=== PATIENT | female | born 1985 | race Caucasian/White ===

== ENCOUNTER 2022-11-08 09:00 | Outpatient (REF) | payer OTHER, SELFPAY ==
[2022-11-08 11:14] LABS: MANUAL DIFF FLAG NO
[2022-11-08 11:22] LABS: Basophils Absolute Auto 0.1 X10*3/uL (0.0-0.2); Basophils Percent Auto 0.8 % (0-2); Eosinophils Absolute Auto 0.1 X10*3/uL (0.0-0.4); Eosinophils Percent Auto 1.4 % (0-4); Hematocrit 40.4 % (37.0-47.0); Hemoglobin 13.7 g/dl (12.0-16.0); Imm Gran Abs Auto 0.05 X10*3/uL (0.00-0.03); Imm Gran Pct Auto 0.5 % (0.0-0.4); Lymphocytes Absolute Auto 2.3 X10*3/uL (1.2-4.9); Lymphocytes Percent Auto 22.3 % (20-40); Mean Corpuscular HGB Conc 33.9 g/dl (31.0-35.0); Mean Corpuscular Hemoglobin 30.2 pg (27.0-33.0); Mean Platelet Volume 11.6 fL (9.4-12.3); Monocytes Absolute Auto 0.7 X10*3/uL (0.1-1.2); Monocytes Percent Auto 7.2 % (2-11); Neutrophils Absolute Auto 6.9 x10*3/uL (2.0-8.3); Neutrophils Percent Auto 67.8 % (45-73); Platelet Count 297 X10*3/uL (160-400); Red Blood Count 4.54 X10*6/uL (4.20-5.50); Red Cell Distribution Width 12.5 % (11.0-16.0); White Blood Count 10.1 X10*3/uL (4.8-10.8)
[2022-11-08 11:26] LABS: Appearance Urine Cloudy; Color Urine Yellow; Glucose Urine UA Negative (Negative); Leukocyte Esterase Urine Large (3+) (Negative); Nitrite Urine Negative (Negative); UMIC TRIGGER UA YES; Urine Blood Small (1+) (Negative); Urine Ketones Negative (Negative); Urine Protein Negative (Neg-Trace)
[2022-11-08 11:36] LABS: Bacteria Urine 4+ (None Seen); Hyaline Casts Urine 0-2 /LPF (0-2); WBC Urine >50 /HPF (0-5)
[2022-11-08 11:45] LABS: Estimated Average Glucose 94 mg/dL; Hemoglobin A1c % 4.9 %
[2022-11-08 12:03] LABS: Alanine Aminotransferase 15 U/L (0-31); Albumin Level 4.2 g/dL (3.5-5.0); Alkaline Phosphatase 80 U/L (39-117); Anion Gap 13 (12-20); Aspartate Amino Transferase 13 U/L (5-31); Bilirubin Total 0.4 mg/dL (0.0-1.0); Blood Urea Nitrogen 11 mg/dL (9-16); Calcium 9.6 mg/dL (8.4-10.2); Carbon Dioxide 25 mmol/L (22-29); Chloride 105 mmol/L (96-108); Cholesterol 204 mg/dL; Estimated Glomerular Filt Rate > 60; Glucose Fasting 96 mg/dL (60-99); HDL Cholesterol 41 mg/dL; LDL Cholesterol Calculated 122 mg/dl; Sodium 139 mmol/L (135-145); Total Protein 7.6 g/dL (6.5-8.0); Triglycerides 207 mg/dL
== END 2022-11-08 09:01 | disposition home or self-care (01) ==
LOC: HO.HMGCLDS 09:00
PROVIDERS: Visit Provider Internal Medicine
DX: Z00.00 Encounter for general adult medical examination without abnormal findings (principal); N92.6 Irregular menstruation, unspecified; R39.9 Unspecified symptoms and signs involving the genitourinary system
CPT/HCPCS: 36415; 80053; 80061; 81001; 81256; 83036; 84443; 85025

== ENCOUNTER 2022-11-08 10:36 | Outpatient (REF) | payer OTHER, SELFPAY | END 2022-11-08 10:37 | disposition home or self-care (01) | LOC: HO.LAB 10:36 | PROVIDERS: Visit Provider Nurse Practitioner Family | DX: N92.6 Irregular menstruation, unspecified (principal); R39.9 Unspecified symptoms and signs involving the genitourinary system | CPT/HCPCS: 87086; 87088; 87186 ==

== ENCOUNTER 2022-12-04 15:30 | Outpatient (AMB) | payer OTHER, SELFPAY ==
[2022-12-04 15:39] VITALS: BP 110/70; BMI 41.0
--- NOTE | 2022-12-04 15:39 | MHC.OFFVIS ---
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 it started few months ago and is getting worse no other associated symptoms. PFSH Family History Mother Mental health disorder Maternal Uncle Mental health disorder CAD (coronary artery disease), Onset Age: 44 Maternal Grandmother Mental health disorder CAD (coronary artery disease), Onset Age: 60 Social History Household Members Other:: marreid, 3 children (17-9), in , Housing: Other Housing Other:: [employer] Patient Tobacco Use Status: Former Tobacco user e-Cigarette/Vaping Use: Never Used service: No Current occupational status: employed Cognitive needs: No Hearing needs: No Vision needs: Yes Female Reproductive History Menstrual Date of last menstrual period: 11/27/22 Review of Systems Const All systems reviewed & are unremarkable except as noted in HPI and below Card Reports as per HPI Resp Reports as per HPI GI Reports as per HPI and Reports no additional complaints Reports as per HPI Physical Exam Vital Signs: Last Vital Signs BP 110/70 12/04/22 15:39 BMI result Body Mass Index 41.0 Const General: cooperative, healthy appearing and comfortable Chest Chest palpation & inspection: normal inspection of the chest and normal palpation of entire chest wall Breast/axilla inspection: normal inspection of the breasts and normal inspection of the axillae Breast/axilla palpation: normal palpation of the breasts, normal palpation of the axillae and no axillary lymphadenopathy Resp Effort & Inspection: normal respiratory effort Auscultation: clear to auscultation bilaterally Percussion: percussion normal Cardio Palpation: normal PMI Rate: regular rate Rhythm: regular rhythm Heart sounds: no murmurs and no rubs Peripheral pulses: Peripheral pulses 2+ throughout GI Inspection: Yes normal to inspection Palpation (GI): Soft to palpation, nontender, no guarding, not rigid and No hepatosplenomegaly present Percussion: Yes normal to percussion Auscultation: normal bowel sounds Rectal Exam - Female: deferred General: Yes bladder normal to palpation External Female Exam: No lesion Speculum Exam - Vagina: normal appearance of the vagina, normal palpation, normal vaginal discharge and not erythematous Speculum Exam - Cervix: normal appearance of the cervix and normal palpation Bimanual exam- vagina & uterus: normal bimanual exam, normal palpation, uterine size normal, bladder normal to palpation, consistency normal and normal palpation Bimanual Exam- Adnexa, other: normal adnexae, no masses and no tenderness Results AMB Test Urine AMB Test Urine Negative Last Edit by Ena Jackman CMA on 12/04/22 15:42 Assessment & Plan Assessment & Plan (1) Abnormal uterine bleeding (AUB): Code(s): N93.9 - Abnormal uterine and vaginal bleeding, unspecified Plan: Co testing done, GC and chlamydia taken CBC, TSH, HCG, and pelvic ultrasound ordered. Discussed with the patient the different causes of abnormal bleeding including thyroid disorders, uterine and ovarian pathology, endometrial hyperplasia, carcinoma and other potential causes. Discussed with the patient the work up including CBC (to r/o anemia), TSH, pelvic Ultrasound, endometrial biopsy to r/o endometrial pathology. All questions answered and the patient verbalized understanding. Instructed the patient to schedule an appointment for an endometrial biopsy in 2 weeks. Orders: Orders AMB HCG Urine Test Today Z32.02 - Encounter for test, result negative Coding Level of Care Code New Pt Level 3 (19218) Diagnoses Abnormal uterine bleeding (AUB) N93.9
== END 2022-12-04 15:52 | disposition home or self-care (01) ==
LOC: HO.HWS 15:30
PROVIDERS: PCP Internal Medicine; Visit Provider Obstetrics & Gynecology
DX: N93.9 Abnormal uterine and vaginal bleeding, unspecified (principal); Z32.02 Encounter for pregnancy test, result negative
CPT/HCPCS: 99203

== ENCOUNTER 2022-12-04 15:30 | Outpatient (REF) | payer OTHER, SELFPAY ==
[2022-12-05 17:53] LABS: CT PCR NOT DETECTED (Not Detect.); NG PCR NOT DETECTED (Not Detect.)
[2022-12-12 21:23] LABS: HPV mRNA E6/E7 rflx Not Detected (Not Detected)
== END 2022-12-04 15:31 | disposition home or self-care (01) ==
LOC: HO.LNP 15:30
PROVIDERS: PCP Internal Medicine; Visit Provider Obstetrics & Gynecology
DX: Z12.4 Encounter for screening for malignant neoplasm of cervix (principal); Z11.51 Encounter for screening for human papillomavirus (HPV); N93.9 Abnormal uterine and vaginal bleeding, unspecified; Z20.2 Contact with and (suspected) exposure to infections with a predominantly sexual mode of transmission
CPT/HCPCS: 0353U; 81025; 87624; 88142; 99202

== ENCOUNTER 2022-12-06 09:54 | Outpatient (AMB) | payer OTHER, SELFPAY ==
[2022-12-06 10:05] VITALS: BMI 42.4
--- NOTE | 2022-12-06 10:05 | A.OFFVIS_ITS ---
Intake VS Expanded 12/06/22 10:05 12/18/22 23:07 Height 5 ft 5.5 in 5 ft 5.5 in Weight 258 lb 13.163 oz 259 lb BMI 42.4 42.4 Intake Visit Reasons: Obesity Allergies No Known Allergies Allergy (Verified 12/04/22 15:40) HPI Nutrition Presentation Details Pt presents for MNT for obesity. Pt was referred by Dr Son typical meal intake B: cup of coffee or banana or kindbar L: subways sand or bar , or left over , water D: baked chicken, pepper , vegetables/potato or rice, water pizza on weekend snacks: granola bar or apple fast foods : 2x/wk physical activity: sedentary during the week ( 2 -3 m 1 mile smoking: denies ETOH; 0-2 x/wk fish twice/wk fruit: not including dairy: 0-1/d not including unless in cereal (banana nut post or cheerios) , cheese block in sand or 1% milk , ice cream beans: twice/wk non starchy vegetable: 2-3 x/wk AIH-Lrqqgvo-Ch.Jeor Equation Height 5 ft 5.5 in Weight 259 lb Resting Metabolic Rate 1875.32 Calculated Activity Level Sedentary Calories Needed to Maintain Weight 2250.38 Diagnosis Nutrition problem #1 food nutri know defi As related to (etiology) #1 lack of nutrit education As evidenced by (sign/symptom) #1 high BMI Monitoring/Goals Nutrition problem monitoring level of knowledge/skill, total PRO intake, total CHO intake and weight Nutrition goal/outcome list 3 CHO foods and wt loss 5lbs in 2 months Outcome progress verbalized understanding Learning/Education Readiness to learn good Most Recent Diabetes Results: Cholesterol 204 mg/dL 11/08/22 HDL Cholesterol 41 mg/dL 11/08/22 Triglycerides 207 mg/dL 11/08/22 Creatinine 0.74 mg/dL (0.5-1.4) 11/08/22 Blood Urea Nitrogen 11 mg/dL (9-16) 11/08/22 Sodium 139 mmol/L (135-145) 11/08/22 Potassium 4.0 mmol/L (3.3-5.1) 11/08/22 Chloride 105 mmol/L (96-108) 11/08/22 Carbon Dioxide 25 mmol/L (22-29) 11/08/22 Calcium 9.6 mg/dL (8.4-10.2) 11/08/22 AST 13 U/L (5-31) 11/08/22 ALT 15 U/L (0-31) 11/08/22 Total Protein 7.6 g/dL (6.5-8.0) 11/08/22 Albumin 4.2 g/dL (3.5-5.0) 11/08/22 PFSH Family History Mother Mental health disorder Maternal Uncle Mental health disorder CAD (coronary artery disease), Onset Age: 44 Maternal Grandmother Mental health disorder CAD (coronary artery disease), Onset Age: 60 Social History Household Members Other:: marreid, 3 children (17-9), in , Housing: Other Housing Other:: [employer] Patient Tobacco Use Status: Former Tobacco user e-Cigarette/Vaping Use: Never Used service: No Current occupational status: employed Cognitive needs: No Hearing needs: No Vision needs: Yes Assessment & Plan Assessment & Plan (1) Morbid obesity with BMI of 40.0-44.9, adult: Code(s): E66.01 - Morbid (severe) obesity due to excess calories; Z68.41 - Body mass index [BMI] 40.0-44.9, adult Plan: wt: 118 kg Est kcal needs as per MSJ: 2250 (40% carb, 30% protein/fat) Est fluid needs as per 25- ml/d: 2943 Est prot per day as per 1 g/kg bw: 118 Recommend fiber intake : 8-10 g per day and gradually increase to 25-28 g per day for women and 35-38 g for men or as tolerated Recommend sodium intake per day : less than 2000 mg Educated patient on: ( R = reviewed V = verbalizes understanding N/R = needs review N/A = not applicable * Food sources of carbohydrate, adequate serving sizes and its role in various health conditions: R * Differences between complex carbohydrates a simple carbohydrates, role of fiber in diet: R * Differences between types of fats and role in diet (mono on saturated fat fatty acids, saturated fatty acids, trans fats): R basic low fat * Food sources of sodium in salt and healthy modifications for heart health in kidney health: R V R/V * Vitamins and minerals: R * Healthy plate method concept: R V * Physical activity: Benefits a precaution: R * Patient Instructions: Practice mindful eating Work on following healthy plate method at dinner Coding Level of Care Code Nutr Indiv Intake (33418) Diagnoses Morbid obesity with BMI of 40.0-44.9, adult E66.01; Z68.41 Time Spent (min) 30
[2022-12-18 23:07] VITALS: BMI 42.4
== END 2022-12-06 10:45 | disposition home or self-care (01) ==
PROVIDERS: PCP Internal Medicine; Visit Provider Dietitian, Registered
DX: E66.01 Morbid (severe) obesity due to excess calories (principal); Z68.41 Body mass index [BMI] 40.0-44.9, adult

== ENCOUNTER → 2022-12-06 09:54 | Outpatient (BNVA) | payer OTHER, SELFPAY | PROVIDERS: Visit Provider Dietitian, Registered | DX: E66.01 Morbid (severe) obesity due to excess calories (principal); Z68.41 Body mass index [BMI] 40.0-44.9, adult | CPT/HCPCS: 97802 ==

== ENCOUNTER 2022-12-27 08:13 | Outpatient (AMB) | payer OTHER, SELFPAY ==
[2022-12-27 08:22] VITALS: BP 108/68; PULSE 86; O2SAT 97; BMI 42.6
--- NOTE | 2022-12-27 08:22 | MHC.PC.OV ---
Vital Signs 12/27/22 08:22 Height 5 ft 5.5 in Weight 260 lb BMI 42.6 BP 108/68 Blood Pressure Location Lt brachial Position Sitting Pulse 86 Pulse Source Pulse Oximeter Pulse Oximetry (%) 97 Oxygen Delivery Method Room Air Intake Visit Reasons: 3 Month follow up Obesity Allergies No Known Allergies Allergy (Verified 12/27/22 08:22) Medication List - Last Reconciled 12/27/22 by Wendy Son MD [id number] 250-250-65 mg (Excedrin Migraine) 2 tabs PO Q6H PRN Tobacco use date assessed: 12/27/22 Dental Screening Dental Screen Date: 12/27/22 Did you have a dental visit in the last 12 months?: Yes Did you have a dental problem in the last 6 months where you did not have access to dental care?: No Was dental information given to patient?: No HPI 3 Month follow up Obesity HPI Details Pt presents for bilateral feet pain and chronic plantar fascitis. Patient would like to have referral to electrical automation engineer. She also complains of 1 month of left shoulder pain worse when trying to reach overhead. Patient denies any weakness left upper extremity. She has been doing lot of physical activities like kayaking. [facility] Family History Mother Mental health disorder Maternal Uncle Mental health disorder CAD (coronary artery disease), Onset Age: 44 Maternal Grandmother Mental health disorder CAD (coronary artery disease), Onset Age: 60 Social History Household Members Other:: marreid, 3 children (17-9), in , Housing: Other Housing Other:: [facility] [employer] Patient Tobacco Use Status: Former Tobacco user e-Cigarette/Vaping Use: Never Used service: No Current occupational status: employed Cognitive needs: No Hearing needs: No Vision needs: Yes Questionnaire Thrive Questionnaire Date Thrive assessed: 10/11/22 AUDIT C Alcohol Use Questionnaire (AUDIT-C) 1. How often do you have a drink containing alcohol?: 2-4 times a month 2. How many drinks containing alcohol do you have on a typical day when you are drinking?: 1 or 2 3. How often do you have six or more drinks on one occasion?: Never Total Score: 2 Score Reviewed/Action Taken: Yes PALMIRA-7 AMB Questionnaire PALMIRA-7 Date PALMIRA - 7 assessed: 10/11/22 Source: Developed by Drs. Kody Taylor, Yoly Watts, Beka Guzmán and colleagues, with an educational martha from [employer]. Review of Systems Const All systems reviewed & are unremarkable except as noted in HPI and below Reports no additional complaints Eyes Reports no additional complaints ENT Reports no additional complaints Card Reports no additional complaints Resp Reports no additional complaints GI Reports no additional complaints Reports no additional complaints Physical exam (Primary Care) Vital Signs: Last Vital Signs Pulse 86 12/27/22 08:22 BP 108/68 12/27/22 08:22 Pulse Ox 97 12/27/22 08:22 Oxygen Delivery Method Room Air 12/27/22 08:22 BMI result Body Mass Index 42.6 Tobacco/Smoking Status: Tobacco use Status Tobacco use date assessed 12/27/22 12/27/22 08:24 Patient Tobacco Use Status Former Tobacco user 12/27/22 08:24 e-Cigarette/Vaping Use Never Used 12/27/22 08:24 Thrive Assessment: Date of Thrive Assessment Date Thrive assessed 10/11/22 12/27/22 08:24 Const General: no acute distress HENMT Face and sinus: Yes normal facial exam Eyes General: appearance normal, both eyes and all related structures Resp Auscultation: clear to auscultation bilaterally Cardio Rhythm: regular rhythm Heart sounds: S1 normal heart sound present and S2 normal heart sound present Extrem Other: Slightly decreased range of motion left shoulder, no joint tenderness Assessment and Plan Assessment & Plan (1) Plantar fasciitis, bilateral: Code(s): M72.2 - Plantar fascial fibromatosis Plan: Referred to Podiatry (2) Morbid obesity with BMI of 40.0-44.9, adult: Code(s): E66.01 - Morbid (severe) obesity due to excess calories; Z68.41 - Body mass index [BMI] 40.0-44.9, adult Plan: Patient will continue to follow-up with marketing sales supervisor and work on the weight management. (3) Right shoulder pain: Code(s): M25.511 - Pain in right shoulder Plan: Shoulder exercises given to the patient . she declined physical therapy. She will return for physical in September Orders: Referrals Podiatry Referral M72.2 - Plantar fascial fibromatosis Coding Level of Care Code Est Pt Level 3 (59908) Diagnoses Plantar fasciitis, bilateral M72.2 Morbid obesity with BMI of 40.0-44.9, adult E66.01; Z68.41 Right shoulder pain M25.511
== END 2022-12-27 09:03 | disposition home or self-care (01) ==
PROVIDERS: PCP Internal Medicine; Visit Provider Internal Medicine
DX: M72.2 Plantar fascial fibromatosis (principal); E66.01 Morbid (severe) obesity due to excess calories; Z68.41 Body mass index [BMI] 40.0-44.9, adult; M25.511 Pain in right shoulder
CPT/HCPCS: 99213

== ENCOUNTER 2023-01-01 14:02 | Outpatient (REF) | payer OTHER, SELFPAY ==
--- NOTE | ~2023-01-01 | US_ITS ---
EXAMINATION: US PELVIS CLINICAL INFORMATION: Abnormal uterine and vaginal bleeding. COMPARISON: None available. TECHNIQUE: Ultrasound of the pelvis is performed using both transabdominal and transvaginal transducers along with Doppler. Transvaginal imaging is performed due to inadequate visualization transabdominally. FINDINGS: Uterus: The uterus is anteverted and measures 8.7 x 4.3 x 5.5 cm. The double wall endometrial thickness is 0.6 mm. The uterus is smooth in contour and has normal myometrial echogenicity. No visible fibroid. There is trace nonspecific fluid within the lower uterine segment and cervix. Nabothian cysts are seen within the cervix. Adnexa: Both ovaries are visualized. There is normal color flow to the adnexa. There is no ovarian torsion. There is no pelvic ascites or fluid collection. Right ovary measures 3.5 x 2.3 x 2.5 cm, volume 10.4 mL. There is a 2.0 x 1.8 x 2.0 cm hemorrhagic right ovarian cyst, with characteristic internal reticulated contents. Left ovary measures 2.3 x 1.1 x 1.4 cm, volume 1.8 mL. US/US pelvic and transvaginal IMPRESSION: 1. A 2.0 cm right ovarian hemorrhagic cyst is of incidental note. 2. There is trace nonspecific fluid within the lower uterine segment and cervix. 3. Nabothian cysts are seen within the cervix.
== END 2023-01-01 14:03 | disposition home or self-care (01) ==
LOC: HO.HMGCX 14:02
PROVIDERS: PCP Internal Medicine; Visit Provider Obstetrics & Gynecology
DX: N93.9 Abnormal uterine and vaginal bleeding, unspecified (principal)
CPT/HCPCS: 76830; 76856

== ENCOUNTER 2023-02-07 09:32 | Outpatient (AMB) | payer OTHER, SELFPAY ==
[2023-02-07 10:15] VITALS: BP 112/72; PULSE 83; TEMP 36.2; O2SAT 97; BMI 42.6
--- NOTE | 2023-02-07 10:15 | AM.OFFWIN_ITS ---
Intake Vital Signs 02/07/23 10:15 Height 5 ft 5.5 in Weight 260 lb 4 oz BMI 42.6 BP 112/72 Blood Pressure Location Lt brachial Position Sitting Pulse 83 Pulse Source Pulse Oximeter Temp 97.2 F Temp Source Temporal Artery Scan Pulse Oximetry (%) 97 Oxygen Delivery Method Room Air Intake Visit Reasons: EP, vaginal discomfort Intake Note: Pt is here c/o having vaginal swelling and itchyness. Pt states she does have a new partner and after her sexual intercourse she had vaginal discomfort. Patient Tobacco Use Status: Former Tobacco user Allergies No Known Allergies Allergy (Verified 02/07/23 10:18) Do you need a note to return to daycare/school/sports/work: No HPI EP, vaginal discomfort HPI Details 37-year-old female patient presents toda y with a 2 day history vaginal irritation and itching. Did have a new sexual partner last week and had unprotected sex. Denies any vaginal discharge or odor, only irritation. Denies any urinary symptoms. Also reports. His about 2-3 days late. [facility] Family History Mother Mental health disorder Maternal Uncle Mental health disorder CAD (coronary artery disease), Onset Age: 44 Maternal Grandmother Mental health disorder CAD (coronary artery disease), Onset Age: 60 Social History Household Members Other:: marreid, 3 children (17-9), in , Housing: Other Housing Other:: [facility] Patient Tobacco Use Status: Former Tobacco user e-Cigarette/Vaping Use: Never Used service: No Current occupational status: employed Cognitive needs: No Hearing needs: No Vision needs: Yes Review of Systems Const All systems reviewed & are unremarkable except as noted in HPI and below Physical Exam Vital Signs: Last Vital Signs Temp 97.2 F 02/07/23 10:15 Pulse 83 02/07/23 10:15 BP 112/72 02/07/23 10:15 Pulse Ox 97 02/07/23 10:15 Oxygen Delivery Method Room Air 02/07/23 10:15 BMI result Body Mass Index 42.6 Const General: cooperative, healthy appearing, comfortable and no acute distress Resp Effort & Inspection: normal respiratory effort General: Yes bladder normal to palpation and Yes no CVA tenderness Bimanual exam- vagina & uterus: bladder normal to palpation Back/Spine/Pelvis Back: no CVA tenderness Skin General skin exam: no rashes or lesions noted Extrem General: Yes no clubbing, cyanosis or edema Psych Appearance: grossly normal Mental Status: mental status grossly normal Speech and movement: Normal speech and movement present Assessment & Plan Assessment & Plan (1) Vaginal irritation: Code(s): N89.8 - Other specified noninflammatory disorders of vagina Plan: GC/chlamydia swab, and BV panel swab obtained by patient self-swab. Advised to refrain from intercourse until vaginal symptoms resolve. She will be notified with results once they are available, and a treatment plan can be further discussed at that time. Urine test in office was negative. She does not have any urinary symptoms. We discussed importance of safe sex practices, and I advised her to utilize a water-based lubricant in the future to help avoid vaginal irritation with intercourse. We discussed further testing with serology for HIV, hep C, RPR, however she declines at this time and states she gets these tests done once or twice a year. (2) Menstrual period late: Code(s): N92.6 - Irregular menstruation, unspecified Orders: Orders Bacterial Vaginosis Panel Today N89.8 - Other specified noninflammatory disorders of vagina CT NG by PCR Today N89.8 - Other specified noninflammatory disorders of vagina AMB HCG Urine Test Today N92.6 - Irregular menstruation, unspecified Coding Level of Care Code Est Pt Level 3 (31154) Diagnoses Vaginal irritation N89.8 Menstrual period late N92.6
== END 2023-02-07 11:00 | disposition home or self-care (01) ==
PROVIDERS: PCP Internal Medicine; Visit Provider Nurse Practitioner Family
DX: N89.8 Other specified noninflammatory disorders of vagina (principal); N92.6 Irregular menstruation, unspecified
CPT/HCPCS: 81025; 99213

== ENCOUNTER 2023-02-07 11:00 | Outpatient (REF) | payer OTHER, SELFPAY ==
[2023-02-07 16:48] LABS: CT PCR NOT DETECTED (Not Detect.); NG PCR NOT DETECTED (Not Detect.)
[2023-02-08 14:29] LABS: BV Int Neg Control Negative (Negative); BV Int Pos Control Positive (Positive)
== END 2023-02-07 11:01 | disposition home or self-care (01) ==
LOC: HO.LAB 11:00
PROVIDERS: Visit Provider Nurse Practitioner Family
DX: N89.8 Other specified noninflammatory disorders of vagina (principal)
CPT/HCPCS: 0353U; 87480; 87510; 87660

== ENCOUNTER 2023-03-08 12:39 | Outpatient (REF) | payer OTHER, SELFPAY | END 2023-03-08 12:40 | disposition home or self-care (01) | LOC: HO.LNP 12:39 | PROVIDERS: PCP Internal Medicine; Visit Provider Obstetrics & Gynecology | DX: N93.9 Abnormal uterine and vaginal bleeding, unspecified (principal); Z32.02 Encounter for pregnancy test, result negative | CPT/HCPCS: 58100; 81025; 88305 ==

== ENCOUNTER 2023-03-08 12:39 | Outpatient (AMB) | payer OTHER, SELFPAY ==
--- NOTE | 2023-03-08 12:50 | MHC.OFFVIS ---
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 Required: No Information Interpreted: non-clinical & clinical Technician Chemical Cleaning: Technician Chemical Cleaning Present (Aidyn) Allergies latex Allergy (Mild, Uncoded 03/08/23 12:57) Swelling Is last menstrual period known: Yes Last menstrual period: 02/12/23 Post menopausal: No PFSH Family History Mother Mental health disorder Maternal Uncle Mental health disorder CAD (coronary artery disease), Onset Age: 44 Maternal Grandmother Mental health disorder CAD (coronary artery disease), Onset Age: 60 Social History Household Members Other:: marreid, 3 children (17-9), in , Housing: Other Housing Other:: [employer] Patient Tobacco Use Status: Former Tobacco user e-Cigarette/Vaping Use: Never Used service: No Current occupational status: employed Cognitive needs: No Hearing needs: No Vision needs: Yes Female Reproductive History Menstrual Age of Menarche: 12 Duration of menses: 6-7 days Date of last menstrual period: 02/12/23 control method: none Date of last pap smear: 12/07/22 (negative) Physical Exam Vital Signs: Last Vital Signs BP 134/80 03/08/23 12:54 BMI result Body Mass Index 42.9 Office Procedures Endometrial Biopsy Details: The patient was counseled regarding the indication and benefits of endometrial sampling to rule out endometrial pathology including not limited to endometrial hyperplasia or endometrial cancer and others; The alternatives (Either do nothing vs. hysteroscopy D&C) & the risks were discussed with the patient including but not limited: pain, uterine perforation, bleeding, infection, possible injury to bladder, bowel, ureter, possible need for blood transfusion with all its possible risks. The patient verbalized understanding all questions answered and signed consent. Urine test done in the office was negative The patient was placed into the dorsal lithotomy position; a speculum was inserted in the vagina. Using aseptic technique for the procedure, the cervix was cleansed with Betadine. The anterior lip of the cervix was grasped with a single tooth tenaculum. The uterus was sounded to 7 cm with a 4 mm Pipelle was used. Tissues samples were obtained and placed in formalin, in a patient labeled container and sent to the pathology department. At the end of the procedure, there was minimal bleeding noted The patient tolerated the procedure well and was discharged in good condition with the following instructions: Nothing in the vagina until the bleeding stops. No sex until the bleeding stops, to call if any of the following occurs: fever (>100.4), flu-like symptoms, abdominal pain, heavy bleeding, four smelling vaginal discharge. The patient was instructed to schedule a Follow up appointment in 2 weeks to discuss pathology results of the biopsy and treatment options. This note was generated with a voice recognition program. Some errors may have been overlooked during the review of this note. Sometimes these errors may affect the content or meaning of a given sentence. [id number] Biopsy Results AMB Test Urine AMB Test Urine Negative Last Edit by KRYSTLE Vallejo on 03/08/23 13:02 Assessment & Plan Assessment & Plan Orders: Orders AMB HCG Urine Test Today Z32.02 - Encounter for test, result negative Surgical Today N93.9 - Abnormal uterine and vaginal bleeding, unspecified AMB Endometrial Biopsy Today N93.9 - Abnormal uterine and vaginal bleeding, unspecified Coding Level of Care Code Procedure Only CPT Codes Endometrial Biopsy - CPT: 84190-Ebkopkcilxs Biopsy ([id number])
[2023-03-08 12:54] VITALS: BP 134/80; BMI 42.9
== END 2023-03-08 13:19 | disposition home or self-care (01) ==
PROVIDERS: PCP Internal Medicine; Visit Provider Obstetrics & Gynecology
DX: N93.9 Abnormal uterine and vaginal bleeding, unspecified (principal); Z32.02 Encounter for pregnancy test, result negative
CPT/HCPCS: 58100

== ENCOUNTER 2023-04-26 07:36 | Outpatient (AMB) | payer OTHER, SELFPAY ==
--- NOTE | 2023-04-26 07:39 | A.OFFVIS_ITS ---
Intake Vital Signs 04/26/23 07:44 Height 5 ft 5.5 in Weight 260 lb 2.327 oz BMI 42.6 BP 122/72 Intake Visit Reasons: EMB results Allergies latex Allergy (Mild, Uncoded 03/08/23 12:57) Swelling HPI HPI Comments History of Present Illness Details The patient is presenting for follow-up to discuss the results of her abnormal uterine bleeding workup and options of treatment. The following workup was done.: H&H= 13.7/40.4 TSH, GC and chlamydia were negative. Endometrial biopsy pathology showed : Secretory endometrium; few fragments with features of polyp; no atypia identified . Co testing was done was negative. Pelvic ultrasound showed the following: Uterus: The uterus is anteverted and measures 8.7 x 4.3 x 5.5 cm. The double wall endometrial thickness is 0.6 mm. The uterus is smooth in contour and has normal myometrial echogenicity. No visible fibroid. There is trace nonspecific fluid within the lower uterine segment and cervix. Nabothian cysts are seen within the cervix. Adnexa: Both ovaries are visualized. There is normal color flow to the adnexa. There is no ovarian torsion. There is no pelvic ascites or fluid collection. Right ovary measures 3.5 x 2.3 x 2.5 cm, volume 10.4 mL. There is a 2.0 x 1.8 x 2.0 cm hemorrhagic right ovarian cyst, with characteristic internal reticulated contents. Left ovary measures 2.3 x 1.1 x 1.4 cm, volume 1.8 mL PFSH Family History Mother Mental health disorder Maternal Uncle Mental health disorder CAD (coronary artery disease), Onset Age: 44 Maternal Grandmother Mental health disorder CAD (coronary artery disease), Onset Age: 60 Social History Household Members Other:: marreid, 3 children (17-9), in , Housing: Other [facility] Patient Tobacco Use Status: Former Tobacco user e-Cigarette/Vaping Use: Never Used service: No Current occupational status: employed Cognitive needs: No Hearing needs: No Vision needs: Yes Female Reproductive History Menstrual Age of Menarche: 12 Review of Systems Const All systems reviewed & are unremarkable except as noted in HPI and below Reports as per HPI and Reports no additional complaints GI Reports no additional complaints Reports no additional complaints Assessment & Plan Assessment & Plan (1) Hemorrhagic ovarian cyst: Code(s): N83.209 - Unspecified ovarian cyst, unspecified side Plan: Discussed with the patient the finding on ultrasound showing a right hemorrhagic cyst, recommended repeat ultrasound will check the results and treat accordingly. Instructions given the patient to schedule within 2 weeks. (2) Abnormal uterine bleeding (AUB): Comment: Endometrial polyp on EMB pathology Code(s): N93.9 - Abnormal uterine and vaginal bleeding, unspecified Plan: Discussed with the patient the results of the workup including fragments of a polyp on EMB pathology, recommended hysteroscopy D&C possible polypectomy/myomectomy. All pros, cons, risks and benefits of the procedure were discussed with the patient, the patient would like to think about it and get back to me within few days . Orders: Orders US pelvic and transvaginal Today N83.209 - Unspecified ovarian cyst, unspecified side Coding Level of Care Code Est Pt Level 3 (62698) Diagnoses Hemorrhagic ovarian cyst N83.209 Abnormal uterine bleeding (AUB) N93.9
[2023-04-26 07:44] VITALS: BP 122/72; BMI 42.6
== END 2023-04-26 08:33 | disposition home or self-care (01) ==
PROVIDERS: PCP Internal Medicine; Visit Provider Obstetrics & Gynecology
DX: N83.209 Unspecified ovarian cyst, unspecified side (principal); N93.9 Abnormal uterine and vaginal bleeding, unspecified
CPT/HCPCS: 99213

== ENCOUNTER → 2023-04-26 07:36 | Outpatient (BNVA) | payer OTHER, SELFPAY | PROVIDERS: PCP Internal Medicine; Visit Provider Obstetrics & Gynecology | DX: N83.209 Unspecified ovarian cyst, unspecified side (principal); N93.9 Abnormal uterine and vaginal bleeding, unspecified | CPT/HCPCS: 99212 ==

== ENCOUNTER 2023-06-08 13:58 | Outpatient (REF) | payer OTHER, SELFPAY ==
--- NOTE | ~2023-06-08 | US_ITS ---
EXAMINATION: US PELVIS CLINICAL INFORMATION: Ovarian cysts, last menstrual period 06/08/2023, ablation. COMPARISON: None available. TECHNIQUE: Ultrasound of the pelvis is performed using both transabdominal and transvaginal transducers along with Doppler. Transvaginal imaging is performed due to inadequate visualization transabdominally. FINDINGS: The uterus measures 8.6 x 4.4 x 5.2 cm, volume 103.8 mL. 0.6 cm right anterior fibroid was not appreciated on the prior study. Endometrial thickness is 0.4 cm. No significant free fluid. Heterogeneous myometrium. No significant free fluid. Right ovary measures 3.1 x 1.6 x 1.3 cm, volume 3.3 mL and is unremarkable. Previously identified 2.0 cm complex right ovarian cyst felt to represent hemorrhagic cyst is not visualized today. Left ovary measures 3.1 x 1.8 x 1.9 cm, volume 5.8 mL. Complex, thick-walled left ovarian cyst measures 2.1 x 1.5 x 1.4 cm, possibly a corpus luteum/hemorrhagic cyst, not previously identified. US/US pelvic and transvaginal IMPRESSION: 1. Complex left ovarian cyst measures 2.1 x 1.5 x 1.4 cm, possibly a corpus luteum/hemorrhagic cyst, not previously identified. 2. Previously identified 2.0 cm complex right ovarian cyst felt to represent a hemorrhagic cyst is not visualized today. 3. 0.6 cm right anterior fibroid was not appreciated on the prior study. 4. Endometrial thickness is 0.4 cm.
== END 2023-06-08 13:59 | disposition home or self-care (01) ==
LOC: HO.HMGCX 13:58
PROVIDERS: PCP Internal Medicine; Visit Provider Obstetrics & Gynecology
DX: N83.209 Unspecified ovarian cyst, unspecified side (principal)
CPT/HCPCS: 76830; 76856

== ENCOUNTER 2023-07-03 12:10 | Outpatient (AMB) | payer OTHER, SELFPAY ==
--- NOTE | 2023-07-03 12:11 | A.OFFVIS_ITS ---
Intake Vital Signs 07/03/23 12:13 Height 5 ft 5.5 in Weight 260 lb 2.327 oz BMI 42.6 BP 118/72 Intake Visit Reasons: ultrasound follow up Inbound Sales Advisor: Inbound Sales Advisor Present Allergies latex Allergy (Mild, Uncoded 03/08/23 12:57) Swelling Is last menstrual period known: Yes Last menstrual period: 03/18/20 Post menopausal: No Patient : No Do you need a note to return to daycare/school/sports/work: Yes (for surgery on sunday) HPI HPI Comments History of Present Illness Details Presenting for follow-up. Pelvic ultrasound showed the following: The uterus measures 8.6 x 4.4 x 5.2 cm, volume 103.8 mL. 0.6 cm right anterior fibroid was not ap preciated on the prior study. Endometrial thickness is 0.4 cm. No significant free fluid. Heterogeneous myometrium. No significant free fluid. Right ovary measures 3.1 x 1.6 x 1.3 cm, volume 3.3 mL and is unremarkable. Previously identified 2.0 cm complex right ovarian cyst felt to represent hemorrhagic cyst is not visualized today. Left ovary measures 3.1 x 1.8 x 1.9 cm, volume 5.8 mL. Complex, thick-walled left ovarian cyst measures 2.1 x 1.5 x 1.4 cm, possibly a corpus luteum/hemorrhagic cyst, not previously identified [facility] Surgical History History of endometrial ablation Family History Mother Mental health disorder Maternal Uncle Mental health disorder CAD (coronary artery disease), Onset Age: 44 Maternal Grandmother Mental health disorder CAD (coronary artery disease), Onset Age: 60 Social History Household Members Other:: marreid, 3 children (17-9), in , Housing: Other Housing Other:: [employer] Patient Tobacco Use Status: Former Tobacco user e-Cigarette/Vaping Use: Never Used service: No Current occupational status: employed Cognitive needs: No Hearing needs: No Vision needs: Yes Female Reproductive History Menstrual Age of Menarche: 12 Date of last menstrual period: 03/18/20 Total pregnancies: 2 Full term: 2 Review of Systems Card Reports as per HPI and Reports no additional complaints Resp Reports as per HPI and Reports no additional complaints GI Reports as per HPI and Reports no additional complaints Reports as per HPI Physical Exam Vital Signs: Last Vital Signs BP 118/72 07/03/23 12:13 BMI result Body Mass Index 42.6 Const General: cooperative, healthy appearing and comfortable Chest Chest palpation & inspection: normal inspection of the chest and normal palpation of entire chest wall Breast/axilla inspection: normal inspection of the breasts and normal inspection of the axillae Breast/axilla palpation: normal palpation of the breasts, normal palpation of the axillae and no axillary lymphadenopathy Resp Effort & Inspection: normal respiratory effort Auscultation: clear to auscultation bilaterally Percussion: percussion normal Cardio Palpation: normal PMI Rate: regular rate Rhythm: regular rhythm Heart sounds: no murmurs and no rubs Peripheral pulses: Peripheral pulses 2+ throughout GI Inspection: Yes normal to inspection Palpation (GI): Soft to palpation, nontender, no guarding, not rigid and No hepatosplenomegaly present Percussion: Yes normal to percussion Auscultation: normal bowel sounds Rectal Exam - Female: deferred Assessment & Plan Assessment & Plan (1) Abnormal uterine bleeding (AUB): Comment: Endometrial polyp on EMB pathology h/o endometrial ablation Code(s): N93.9 - Abnormal uterine and vaginal bleeding, unspecified Plan: Discussed with the patient the results the pathology showing fragments of endometrial polyp recommended hysteroscopy D&C possible polypectomy/myomectomy. Discussed with the patient the procedure , all benefits and risks including but not limited to inability to complete the procedure , insufficient endometrial tissue for a complete evaluation of the endometrial cavity , bleeding, infection, possible need for blood transfusion with all its risk ( HIV,syphilis, Hepatitis, anaphylaxis shock, others..), injury to bladder, rectum, possible need for laparoscopy/laparotomy or hysterectomy. The patient verbalized understanding and signed the consent. Instructions given the patient to schedule a 2 week postoperative appointment (2) Complex ovarian cyst: Code(s): N83.299 - Other ovarian cyst, unspecified side Plan: Discussed with the patient the new onset complex ovarian cyst by ultrasound and complex ovarian cyst resolved. Discussed with the patient the Ultrasound findings, the main limitation of transvaginal ultrasonography alone as a diagnostic tool to distinguish benign from malignant masses relates to its lack of specificity and low positive predictive value for cancer. The differential diagnosis discussed with the patient includes the following but not limited to: benign and malignant gynecological and non-gynecological causes. Discussed with the patient options of treatment , in case CA 125 is not elevated, including laparoscopy ovarian cystectomy/oophorectomy vs. expectant management with repeat US in repeating pelvic US in 6-12 weeks from previous US. If the ovarian complex cyst is persistent larger and / or more complex looking, will refer to gynecologic Oncology. All pros, cons, risks and benefits of each approach were discussed with the patient including but not limited to a delay in the diagnosis and treatment of ovarian cancer affecting the prognosis; The patient decided to go ahead with expectant management. Instructions given the patient to schedule a 3 months follow-up ultrasound appointment. All questions were answered & the patient verbalized understanding and agreed with the plan. Orders: Orders US pelvic and transvaginal 08/22/23 N83.299 - Other ovarian cyst, unspecified side Coding Level of Care Code Est Pt Level 3 (22964) Diagnoses Abnormal uterine bleeding (AUB) N93.9 Complex ovarian cyst N83.299
[2023-07-03 12:13] VITALS: BP 118/72; BMI 42.6
== END 2023-07-03 12:40 | disposition home or self-care (01) ==
LOC: HO.HWS 12:10
PROVIDERS: PCP Internal Medicine; Visit Provider Obstetrics & Gynecology
DX: N93.9 Abnormal uterine and vaginal bleeding, unspecified (principal); N83.299 Other ovarian cyst, unspecified side
CPT/HCPCS: 99213

== ENCOUNTER → 2023-07-03 12:10 | Outpatient (BNVA) | payer OTHER, SELFPAY | PROVIDERS: PCP Internal Medicine; Visit Provider Obstetrics & Gynecology | DX: N93.9 Abnormal uterine and vaginal bleeding, unspecified (principal); N83.299 Other ovarian cyst, unspecified side | CPT/HCPCS: 99212 ==

== ENCOUNTER 2023-07-23 14:51 | Outpatient (AMB) | payer OTHER, SELFPAY ==
[2023-07-23 14:51] VITALS: BP 110/70; PULSE 80; TEMP 36.2; O2SAT 98; BMI 42.4
--- NOTE | 2023-07-23 14:51 | MHC.OFFWIV ---
Intake Vital Signs 07/23/23 14:51 Height 5 ft 5.5 in Weight 259 lb BMI 42.4 BP 110/70 Blood Pressure Location Lt brachial Position Sitting Pulse 80 Pulse Source Pulse Oximeter Temp 97.2 F Temp Source Temporal Artery Scan Pulse Oximetry (%) 98 Oxygen Delivery Method Room Air Intake Visit Reasons: EP sinus fevers congestion Intake Note: pt is here today for fever congestion started 1 weeks ago Patient Tobacco Use Status: Former Tobacco user Allergies latex Allergy (Mild, Verified 01/02/24 09:13) Swelling Medication List - Last Reconciled 07/23/23 by EDNA Morris stqplhv-wvtnajrvntzeu-fsvmqnps 250-250-65 mg (Excedrin Migraine) 2 tabs PO Q6H PRN Do you need a note to return to daycare/school/sports/work: No HPI HPI Comments History of Present Illness Details 38-year-old female presents today complaining of sinus pain pressure and congestion for the last week. She has past medical history of sinus infections. [facility] Medical History Abscess Irregular menses Migraine Ovarian cyst Surgical History History of mandibular surgery History of endometrial ablation Family History Mother Mental health disorder Maternal Uncle Mental health disorder CAD (coronary artery disease), Onset Age: 44 Maternal Grandmother Mental health disorder CAD (coronary artery disease), Onset Age: 60 Social History Household Members Other:: marreid, 3 children (17-9), in , Housing: Other Housing Other:: [employer] Patient Tobacco Use Status: Former Tobacco user e-Cigarette/Vaping Use: Never Used service: No Current occupational status: employed Cognitive needs: No Hearing needs: No Vision needs: Yes Female Reproductive History Menstrual Age of Menarche: 12 Review of Systems Const All systems reviewed & are unremarkable except as noted in HPI and below Eyes Reports no additional complaints ENT Reports nasal congestion, Reports sinus pain and Reports sinus pressure Resp Reports no additional complaints Physical Exam Vital Signs: Last Vital Signs Temp 97.2 F 07/23/23 14:51 Pulse 80 07/23/23 14:51 BP 110/70 07/23/23 14:51 Pulse Ox 98 07/23/23 14:51 Oxygen Delivery Method Room Air 07/23/23 14:51 BMI result Body Mass Index 42.4 HEENT Head: Yes normal to inspection and Yes normocephalic Ears: hearing grossly normal bilaterally, external ears normal, TM's normal bilaterally, TM normal on the right and TM normal on the left General nose exam: Normal external nose present Face and sinus: Yes sinus tenderness Resp Effort & Inspection: normal respiratory effort Auscultation: clear to auscultation bilaterally Cardio Rate: regular rate Rhythm: regular rhythm and abnormal rhythm Assessment & Plan Assessment & Plan (1) Sinus pain: Code(s): J34.89 - Other specified disorders of nose and nasal sinuses (2) Abscess of axilla, left: Code(s): L02.412 - Cutaneous abscess of left axilla (3) Sinusitis: Code(s): J32.9 - Chronic sinusitis, unspecified Plan: Cover test submitted and patient put on antibiotics for sinusitis Plan See plan Orders: Orders SARS-CoV2/FLU/RSV 07/23/23 J34.89 - Other specified disorders of nose and nasal sinuses Medications: New doxycycline hyclate 100 mg PO BID 14 caps 0RF 7 days Coding Level of Care Code Est Pt Level 3 (05828) Diagnoses Sinus pain J34.89 Abscess of axilla, left L02.412 Sinusitis J32.9
== END 2023-07-23 16:01 | disposition home or self-care (01) ==
PROVIDERS: PCP Internal Medicine; Visit Provider Physician Assistant Medical
DX: J34.89 Other specified disorders of nose and nasal sinuses (principal); L02.412 Cutaneous abscess of left axilla; J32.9 Chronic sinusitis, unspecified
CPT/HCPCS: 99499

== ENCOUNTER 2023-07-23 16:10 | Outpatient (REF) | payer OTHER, SELFPAY ==
[2023-07-23 16:56] LABS: Influenza A PCR NEGATIVE (Negative); Influenza B PCR NEGATIVE (Negative); Resp Syncy Virus RNA Qual PCR NEGATIVE (Negative); SARS COV2 PCR INHOUSE NEGATIVE (Negative)
== END 2023-07-23 16:11 | disposition home or self-care (01) ==
LOC: HO.HMGCLNP 16:10
PROVIDERS: Visit Provider Physician Assistant Medical
DX: J34.89 Other specified disorders of nose and nasal sinuses (principal); Z11.52 Encounter for screening for COVID-19; Z20.828 Contact with and (suspected) exposure to other viral communicable diseases
CPT/HCPCS: 0241U

== ENCOUNTER 2023-08-20 16:06 | Outpatient (AMB) | payer OTHER, SELFPAY ==
--- NOTE | 2023-08-20 16:10 | MHC.OFFVIS ---
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 The patient is presenting to discuss the results of the previous EMB which showed the following: Endometrium, biopsy: Secretory endometrium; few fragments with features of polyp; no atypia identified [facility] Medical History Irregular menses Migraine Ovarian cyst Surgical History History of endometrial ablation Family History Mother Mental health disorder Maternal Uncle Mental health disorder CAD (coronary artery disease), Onset Age: 44 Maternal Grandmother Mental health disorder CAD (coronary artery disease), Onset Age: 60 Social History Household Members Other:: marreid, 3 children (17-9), in , Housing: Other Housing Other:: [facility] Patient Tobacco Use Status: Former Tobacco user e-Cigarette/Vaping Use: Never Used service: No Current occupational status: employed Cognitive needs: No Hearing needs: No Vision needs: Yes Female Reproductive History Menstrual Age of Menarche: 12 Date of last menstrual period: 03/18/20 Total pregnancies: 2 Full term: 2 Review of Systems Card Reports as per HPI and Reports no additional complaints Resp Reports as per HPI and Reports no additional complaints GI Reports as per HPI and Reports no additional complaints Reports as per HPI Physical Exam Vital Signs: Last Vital Signs BP 122/84 08/20/23 16:11 BMI result Body Mass Index 42.3 Const General: cooperative, healthy appearing and comfortable Resp Effort & Inspection: normal respiratory effort Auscultation: clear to auscultation bilaterally Percussion: percussion normal Cardio Palpation: normal PMI Rate: regular rate Rhythm: regular rhythm Heart sounds: no murmurs and no rubs Peripheral pulses: Peripheral pulses 2+ throughout GI Inspection: Yes normal to inspection Palpation (GI): Soft to palpation, nontender, no guarding, not rigid and No hepatosplenomegaly present Percussion: Yes normal to percussion Auscultation: normal bowel sounds Rectal Exam - Female: deferred Assessment & Plan Assessment & Plan (1) Abnormal uterine bleeding (AUB): Comment: Endometrial polyp on EMB pathology h/o endometrial ablation Code(s): N93.9 - Abnormal uterine and vaginal bleeding, unspecified Plan: Discussed with the patient the results the endometrial biopsy pathology showing fragments of endometrial polyp, recommended to reschedule hysteroscopy D&C possible polypectomy. Discussed with the patient the procedure , all benefits and risks including but not limited to inability to complete the procedure , insufficient endometrial tissue for a complete evaluation of the endometrial cavity , inability to enter the endometrial cavity secondary to adhesions due to previous endometrial ablation, bleeding, infection, possible need for blood transfusion with all its risk ( HIV,syphilis, Hepatitis, anaphylaxis shock, others..), injury to bladder, rectum, possible need for laparoscopy/laparotomy or hysterectomy. The patient verbalized understanding and signed the consent. Instructions given the patient to schedule a 2 week postoperative appointment Coding Level of Care Code Est Pt Level 3 (25741) Diagnoses Abnormal uterine bleeding (AUB) N93.9
[2023-08-20 16:11] VITALS: BP 122/84; BMI 42.3
== END 2023-08-20 16:22 | disposition home or self-care (01) ==
LOC: HO.HWS 16:06
PROVIDERS: PCP Internal Medicine; Visit Provider Obstetrics & Gynecology
DX: N93.9 Abnormal uterine and vaginal bleeding, unspecified (principal)
CPT/HCPCS: 99213

== ENCOUNTER → 2023-08-20 16:06 | Outpatient (BNVA) | payer OTHER, SELFPAY | PROVIDERS: PCP Internal Medicine; Visit Provider Obstetrics & Gynecology | DX: Z01.818 Encounter for other preprocedural examination (principal); N93.9 Abnormal uterine and vaginal bleeding, unspecified | CPT/HCPCS: 99212 ==

== ENCOUNTER 2023-08-21 13:05 | Outpatient (REF) | payer OTHER, SELFPAY ==
--- NOTE | ~2023-08-21 | US_ITS ---
EXAMINATION: US PELVIS COMPLETE CLINICAL INFORMATION: Complex ovarian cyst; the last menstrual period is uncertain. COMPARISON: Pelvic ultrasound dated 06/08/2023. TECHNIQUE: Transabdominal and transvaginal imaging were performed. FINDINGS: The uterus is of normal size and heterogeneous in texture, measuring 8.2 x 4.3 x 5.4 cm. There is an upper uterine calcification, likely related to fibroid disease. The uterus is anteverted and anteflexed. A regular, homogeneous endometrium is identified measuring 0.8 cm. The cervical length is 0.8 cm. Nabothian cysts are seen within the cervix. FIBROIDS: There are 2 fibroids seen. 1. Location: Upper rightward body, subendometrial. Size: 0.9 x 1.0 x 0.9 cm. Prior: 0.6 x 0.5 x 0.6 cm Fibroid characteristics: Isoechoic. 2. Location: Fundus, myometrial. Size: 1.2 x 1.1 x 0.9 cm. Prior: Not seen. Fibroid characteristics: Hypoechoic. Both ovaries are of normal size and echogenicity. The right measures 3.3 x 3.0 x 3.3 cm for a volume of 17.0 mL. The right ovary contains a 2.7 cm benign, simple follicle. This requires no imaging follow-up. The left measures 1.9 x 1.4 x 1.7 cm for a volume of 2.3 mL. There is a very small amount of free fluid in the cul-de-sac. US/US pelvic and transvaginal IMPRESSION: 1. There are small uterine fibroids, as detailed. 2. A nabothian cyst is seen within the cervix. 3. There is a very small amount of nonspecific free fluid in the cul-de-sac.
== END 2023-08-21 13:06 | disposition home or self-care (01) ==
LOC: HO.HMGCX 13:05
PROVIDERS: PCP Internal Medicine; Visit Provider Obstetrics & Gynecology
DX: N83.299 Other ovarian cyst, unspecified side (principal)
CPT/HCPCS: 76830; 76856

== ENCOUNTER 2023-08-31 06:54 | Day surgery (SDC) | payer OTHER, SELFPAY ==
[2023-07-31 15:05] VITALS: BMI 42.6
[2023-08-28 07:52] VITALS: BMI 42.6
--- NOTE | 2023-08-29 11:40 | HO.ANESPROP2 ---
Documented by User: Deepali Dean NP 08/29/23 11:40 HPI - Anesthesia Eval Consult details Narrative: 38yo F for D&C Hysteroscopy,possible myomectomy,possible polypectomy, PMFSH Active Problems Active Problems: All Active Problems Abscess of axilla, left (Acute) Sinus pain (Acute) Complex ovarian cyst (Acute) Hemorrhagic ovarian cyst (Acute) Right shoulder pain (Acute) Plantar fasciitis, bilateral (Acute) Morbid obesity with BMI of 40.0-44.9, adult (Acute) Abnormal uterine bleeding (AUB) (Acute) UTI symptoms (Acute) Overweight (Acute) Perianal abscess (Acute) Migraine (Acute) Annual physical exam (Acute) Irregular menses (Acute) Past Medical History Medical History (Updated 08/31/23 @ 07:07 by Shira Rae RN) Abscess Irregular menses Migraine Ovarian cyst Family History Family History Mother Mental health disorder Maternal Uncle Mental health disorder CAD (coronary artery disease), Onset Age: 44 Maternal Grandmother Mental health disorder CAD (coronary artery disease), Onset Age: 60 Surgical History Surgical History (Updated 08/31/23 @ 07:07 by Shira Rae RN) History of mandibular surgery History of endometrial ablation Social History Social History Household Members Other:: marreid, 3 children (17-9), in , Housing: Other Housing Other:: [facility] Patient Tobacco Use Status: Former Tobacco user e-Cigarette/Vaping Use: Never Used service: No Current occupational status: employed Cognitive needs: No Hearing needs: No Vision needs: Yes Meds Allergies Allergy/AdvReac Type Severity Reaction Status Date / Time latex Allergy Mild Swelling Verified 07/31/23 15:03 Home Medications ?Medication ?Instructions ?Recorded ?Confirmed ?Last Taken ?Type skwtrjz-dwyrbsdagsusw-tqqeidyv 250 2 tab PO Q6H PRN Migraine Headache 10/11/22 07/31/23 Unknown History mg-250 mg-65 mg tablet (Excedrin Migraine) Exam Height,Weight and Vital Signs: Height 5 ft 5.5 in Weight 117.934 kg Assessment and Plan Assessment Anesthesia Assessment: Chart Reviewed Documented by User: Adolfo Chery MD 08/31/23 08:38 PMFSH Past Medical History Medical History (Updated 08/31/23 @ 07:07 by Shira Rae RN) Abscess Irregular menses Migraine Ovarian cyst Patient : No Family History Family History Mother Mental health disorder Maternal Uncle Mental health disorder CAD (coronary artery disease), Onset Age: 44 Maternal Grandmother Mental health disorder CAD (coronary artery disease), Onset Age: 60 Family history of problems with anesthesia: No Surgical History Surgical History (Updated 08/31/23 @ 07:07 by Shira Rae RN) History of mandibular surgery History of endometrial ablation History of Problems with Anesthesia: No Social History Social History Household Members Other:: marreid, 3 children (17-9), in , Housing: Other Housing Other:: [facility] [employer] Patient Tobacco Use Status: Former Tobacco user e-Cigarette/Vaping Use: Never Used service: No Current occupational status: employed Cognitive needs: No Hearing needs: No Vision needs: Yes Meds Allergies Allergy/AdvReac Type Severity Reaction Status Date / Time latex Allergy Mild Swelling Verified 07/31/23 15:03 Home Medications ?Medication ?Instructions ?Recorded ?Confirmed ?Last Taken ?Type bdibqdn-jewrherytzegw-wjufpmms 250 2 tab PO Q6H PRN Migraine Headache 10/11/22 07/31/23 Unknown History mg-250 mg-65 mg tablet (Excedrin Migraine) Exam Airway Mallampati Class: II TM Dist: >3cm Neck ROM: Full Loose/Missing/Broken Teeth: Yes and Lower Heart: ok Lungs: ok Assessment and Plan Assessment Anesthesia Assessment: Anesthesia Plan Discussed Final Anesthetic Review Family History of Problems with Anesthesia: No History of Problems with Anesthesia: No NPO: Yes ASA Class: III Final Preanesthetic Review: No Changes in Pt Med Stat, Meds/Allgs Chart Reviewed, Consent Obtained/Reviewed and Anes Risks/Benef Reviewed Patient Risk: Intermediate Procedure Risk: Low Anesthetic Plan Anesthetic Plan: GA and Agree w/ Assess. and Plan Disposition: Standard PACU
[2023-08-31 07:02] VITALS: BMI 45.2
[2023-08-31 07:17] VITALS: BP 128/80; PULSE 87; RESP 16; TEMP 36.1; O2SAT 98
[2023-08-31 07:18] LABS: UPreg QC Valid YES; Urine Pregnancy NEGATIVE (NEGATIVE)
[2023-08-31] MEDS: Lactated Ringers 1,000 ML 100 ML IVCONT (07:26)
--- NOTE | 2023-08-31 08:15 | MHC.SHP ---
Pre-Procedural Eval Section A - 24 Hr Update-Section A only Date of Service: 08/31/23 The patient is an INPATIENT: No Changes since office visit: No Cold of Flu in the past 2 weeks, No New Medical Problems, No Changes in Medication and No Patient answered all questions The patient has been examined within 24 hours of the surgical procedure. The History & Physical has been completed within 30 days and I have reviewed it.: Yes Section B - Complete if H&P > 30 days Chief Complaint: Abnormal uterine and vaginal bleeding, unspecified Allergies: Allergies Allergy/AdvReac Type Severity Reaction Status Date / Time latex Allergy Mild Swelling Verified 07/31/23 15:03 Plan Diagnosis/Plan: Unchanged I have reviewed the history and physical and performed a pertinent physical examination on my patient. No changes have occurred unless specified. Time Spent With Patient Time: Total time managing care of this patient today ____ minutes.
--- NOTE | 2023-08-31 09:16 | PM.OP ---
Brief Operative Note Date of Service: 08/31/23 Pre-op diagnosis: Abnormal uterine bleeding, endometrial polyp on endometrial biopsy pathology Post-op diagnosis: same (Multiple small endometrial polyps) Procedure: Hysteroscopy D&C, Polypectomies Surgeon: Solo Godfrey MD Anesthesia: GLMA Was an Psych Specialist used for this Procedure?: No Estimated blood loss (mL): 0 Pathology: other (Endometrial Scrapping. Polyps) Condition: stable Disposition: PACU
--- NOTE | 2023-08-31 09:17 | W.PM.OPN ---
Operative Note Operative Note Date of Service: 08/31/23 Narrative: Preop Diagnosis: Abnormal uterine bleeding, Endometrial polyp on EMB pathology Operation: Diagnostic Hysteroscopy, Dilataion & Curettage and polypectomies Post Op Diagnosis: Multiple Endometrial Polys QBL: Minimal Anesthesia: GLMA Surgeon: Solo Godfrey MD Customer Contact Specialist: None Complication: None Pathology: Endometrial Scrapings, Endometrial polyps Procedure: The patient was put in the dorsal lithotomy position, scrubbed, and draped in the usual manner. A sterile speculum was inserted in the patient's vagina. The anterior lip of the cervix was grasped with a single tooth tenaculum. The cervix was dilated up to 5 mm, then the scope was inserted in the patient's uterus. Inspection revealed multiple small endometrial polyps. The Myosure Reach device was used; it was introduced through the operative channel and polypectomies were done with no complications. The scope was then taken out from the uterine cavity, sharp curettings was carried on with minimal to moderate amount of tissues retrieved. At the end of the procedure, all instruments were taken out of the patient uterine and vaginal cavity. The single tooth tenaculum was removed and homeostasis was assured using pressure,. The patient tolerated the procedure well and was transferred to the PACU in a stable condition.
[2023-08-31 09:23] VITALS: BP 115/77; PULSE 80; RESP 18; TEMP 36.4; O2SAT 97
[2023-08-31 09:28] VITALS: BP 115/77; PULSE 70; RESP 18; O2SAT 97
[2023-08-31 09:34] VITALS: BP 122/71; PULSE 77; RESP 18; O2SAT 97
[2023-08-31 09:38] VITALS: BP 114/69; PULSE 79; RESP 18; TEMP 36.4; O2SAT 97
== END 2023-08-31 10:10 | disposition home or self-care (01) ==
PROVIDERS: Nurse Practitioner; PCP Internal Medicine; Visit Provider Obstetrics & Gynecology
PROC: 0UDB8ZZ Extraction of Endometrium, Via Natural or Artificial Opening Endoscopic (ICD-10-PCS; CPT 58558; principal; 2023-08-31 08:50)
DX: N93.9 Abnormal uterine and vaginal bleeding, unspecified (principal); N84.0 Polyp of corpus uteri; G43.909 Migraine, unspecified, not intractable, without status migrainosus; N83.209 Unspecified ovarian cyst, unspecified side; Z79.82 Long term (current) use of aspirin; Z91.040 Latex allergy status; Z87.891 Personal history of nicotine dependence
CPT/HCPCS: 58558; 81025; 88305; J1885; J2405; J2704; J3010

== ENCOUNTER → 2023-08-31 06:54 | Outpatient (BNV) | payer OTHER, SELFPAY | PROVIDERS: PCP Internal Medicine; Visit Provider Obstetrics & Gynecology | DX: N93.9 Abnormal uterine and vaginal bleeding, unspecified (principal); N84.0 Polyp of corpus uteri | CPT/HCPCS: 58558 ==

== ENCOUNTER 2023-09-13 14:27 | Outpatient (AMB) | payer OTHER, SELFPAY ==
--- NOTE | 2023-09-13 14:46 | MHC.OFFVIS ---
Vital Signs 09/13/23 14:49 Height 5 ft 5.5 in Weight 260 lb BMI 42.6 BP 110/70 Intake Visit Reasons: post op/U/S results Allergies latex Allergy (Mild, Verified 07/31/23 15:03) Swelling HPI Comments Details: Presenting post hysteroscopy D&C/polypectomy and for follow-up ultrasound Pelvic ultrasound done in 09/10 showed the following: The uterus is of normal size and heterogeneous in texture, measuring 8.2 x 4.3 x 5.4 cm. There is an upper uterine calcification, likely related to fibroid disease. The uterus is anteverted and anteflexed. A regular, homogeneous endometrium is identified measuring 0.8 cm. The cervical length is 0.8 cm. Nabothian cysts are seen within the cervix. FIBROIDS: There are 2 fibroids seen. 1. Location: Upper rightward body, subendometrial. Size: 0.9 x 1.0 x 0.9 cm. Prior: 0.6 x 0.5 x 0.6 cm Fibroid characteristics: Isoechoic. 2. Location: Fundus, myometrial. Size: 1.2 x 1.1 x 0.9 cm. Prior: Not seen. Fibroid characteristics: Hypoechoic. Both ovaries are of normal size and echogenicity. The right measures 3.3 x 3.0 x 3.3 cm for a volume of 17.0 mL. The right ovary contains a 2.7 cm benign, simple follicle. This requires no imaging follow-up. The left measures 1.9 x 1.4 x 1.7 cm for a volume of 2.3 mL. There is a very small amount of free fluid in the cul-de-sac. Pathology report showed the following: A. Endometrial polyps, resection: Compatible with benign functional polyps; no atypia or carcinoma. B. Endometrium, curettage: Benign late secretory endometrium and fragments compatible with benign functional polyps; no atypia or carcinoma. [facility] Medical History Abscess Irregular menses Migraine Ovarian cyst Surgical History History of mandibular surgery History of endometrial ablation Family History Mother Mental health disorder Maternal Uncle Mental health disorder CAD (coronary artery disease), Onset Age: 44 Maternal Grandmother Mental health disorder CAD (coronary artery disease), Onset Age: 60 Social History Household Members Other:: marreid, 3 children (17-9), in , Housing: Other Housing Other:: [facility] Patient Tobacco Use Status: Former Tobacco user e-Cigarette/Vaping Use: Never Used service: No Current occupational status: employed Cognitive needs: No Hearing needs: No Vision needs: Yes Female Reproductive History Menstrual Age of Menarche: 12 Review of Systems Const All systems reviewed & are unremarkable except as noted in HPI and below Reports as per HPI and Reports no additional complaints GI Reports no additional complaints Reports no additional complaints Physical Exam Vital Signs: Last Vital Signs BP 110/70 09/13/23 14:49 BMI result Body Mass Index 42.6 Assessment & Plan Assessment & Plan (1) Uterine myoma: Code(s): D25.9 - Leiomyoma of uterus, unspecified Category: Medical Plan: Discussed with the patient the findings on pelvic ultrasound & the risk of myosarcoma; discussed with the patient the options of treatment including expectant management versus hysterectomy; the pros and cons, risks benefits of each approach were discussed with the patient including the fact that in cases of myosarcoma, surgical treatment can lead to early diagnosis and positively affects the prognosis; after further discussion, the patient decided to proceed with expectant management. Will repeat pelvic ultrasound periodically. Instructions given to patient to call in case any of the following occurs: pressure symptoms, abnormal uterine bleeding, pelvic pain; and to schedule six-month ultrasound and a follow-up appointment for reassessment . All questions answered, the patient verbalized understanding and agreed with the plan . (2) Abnormal uterine bleeding (AUB): Comment: h/o endometrial ablation Code(s): N93.9 - Abnormal uterine and vaginal bleeding, unspecified Category: Medical Plan: Discussed with the patient the results of the work up done and options of treatment including cyclic progesterone, Mirena IUD, endometrial ablation and hysterectomy. All pros, cons, risks and benefits if each option was discussed with the patient and the patient decided to think about it and get back to us. All questions answered the patient verbalized understanding. Coding Level of Care Code Est Pt Level 3 (53250) Diagnoses Uterine myoma D25.9 Abnormal uterine bleeding (AUB) N93.9
[2023-09-13 14:49] VITALS: BP 110/70; BMI 42.6
== END 2023-09-13 15:06 | disposition home or self-care (01) ==
PROVIDERS: PCP Internal Medicine; Visit Provider Obstetrics & Gynecology
DX: D25.9 Leiomyoma of uterus, unspecified (principal); N93.9 Abnormal uterine and vaginal bleeding, unspecified
CPT/HCPCS: 99213

== ENCOUNTER → 2023-09-13 14:27 | Outpatient (BNVA) | payer OTHER, SELFPAY | PROVIDERS: PCP Internal Medicine; Visit Provider Obstetrics & Gynecology | DX: D25.9 Leiomyoma of uterus, unspecified (principal); N93.9 Abnormal uterine and vaginal bleeding, unspecified | CPT/HCPCS: 99212 ==

== ENCOUNTER 2023-10-18 07:23 | Outpatient (REF) | payer OTHER, SELFPAY ==
[2023-10-18 10:22] LABS: MANUAL DIFF FLAG NO
[2023-10-18 10:37] LABS: Basophils Absolute Auto 0.1 X10*3/uL (0.0-0.2); Basophils Percent Auto 0.7 % (0-2); Eosinophils Absolute Auto 0.2 X10*3/uL (0.0-0.4); Eosinophils Percent Auto 1.6 % (0-4); Hematocrit 40.8 % (37.0-47.0); Hemoglobin 13.9 g/dl (12.0-16.0); Imm Gran Abs Auto 0.03 X10*3/uL (0.00-0.03); Imm Gran Pct Auto 0.3 % (0.0-0.4); Lymphocytes Percent Auto 30.2 % (20-40); Mean Corpuscular HGB Conc 34.1 g/dl (31.0-35.0); Mean Corpuscular Hemoglobin 30.5 pg (27.0-33.0); Mean Corpuscular Volume 89.5 fL (80.0-98.0); Mean Platelet Volume 11.6 fL (9.4-12.3); Monocytes Absolute Auto 0.7 X10*3/uL (0.1-1.2); Monocytes Percent Auto 7.3 % (2-11); Neutrophils Absolute Auto 5.9 x10*3/uL (2.0-8.3); Neutrophils Percent Auto 59.9 % (45-73); Platelet Count 325 X10*3/uL (160-400); Red Blood Count 4.56 X10*6/uL (4.20-5.50); Red Cell Distribution Width 12.4 % (11.0-16.0); White Blood Count 9.8 X10*3/uL (4.8-10.8)
[2023-10-18 11:01] LABS: Alanine Aminotransferase 22 U/L (0-31); Albumin Level 4.2 g/dL (3.5-5.0); Alkaline Phosphatase 91 U/L (39-117); Anion Gap 14 (12-20); Aspartate Amino Transferase 19 U/L (5-31); Bilirubin Total 0.3 mg/dL (0.0-1.0); Blood Urea Nitrogen 12 mg/dL (9-16); Calcium 8.7 mg/dL (8.4-10.2); Carbon Dioxide 25 mmol/L (22-29); Chloride 106 mmol/L (96-108); Cholesterol 219 mg/dL (<200); Estimated Glomerular Filt Rate > 60; Glucose Random 100 mg/dL (60-115); HDL Cholesterol 42 mg/dL (>40); LDL Cholesterol Calculated 129 mg/dL (<100); Sodium 141 mmol/L (135-145); Total Protein 7.5 g/dL (6.5-8.0); Triglycerides 240 mg/dL (<150)
[2023-10-18 11:17] LABS: TSH reflex Free T4 2.77 uIU/mL (0.32-4.0)
== END 2023-10-18 07:24 | disposition home or self-care (01) ==
LOC: HO.HMGCLDS 07:23
PROVIDERS: PCP Internal Medicine; Visit Provider Internal Medicine
DX: Z00.00 Encounter for general adult medical examination without abnormal findings (principal)
CPT/HCPCS: 36415; 80053; 80061; 84443; 85025

== ENCOUNTER 2023-10-19 07:59 | Outpatient (AMB) | payer OTHER, SELFPAY ==
[2023-10-19 08:06] VITALS: BP 102/66; PULSE 83; O2SAT 98; BMI 43.1
--- NOTE | 2023-10-19 08:06 | MHC.PC.OV ---
Vital Signs 10/19/23 08:06 Height 5 ft 5.5 in Weight 263 lb BMI 43.1 BP 102/66 Blood Pressure Location Rt brachial Position Sitting Pulse 83 Pulse Source Pulse Oximeter Pulse Oximetry (%) 98 Oxygen Delivery Method Room Air Intake Visit Reasons: Annual PE Intake Note: Pt is here today for PE. Allergies latex Allergy (Mild, Verified 10/19/23 08:08) Swelling Medication List - Last Reconciled 10/19/23 by Wendy Son MD [id number] 250-250-65 mg (Excedrin Migraine) 2 tabs PO Q6H PRN Tobacco use date assessed: 10/19/23 Dental Screening Dental Screen Date: 10/19/23 Did you have a dental visit in the last 12 months?: Yes Did you have a dental problem in the last 6 months where you did not have access to dental care?: No Was dental information given to patient?: Patient has dentist HPI Annual PE HPI Details Patient presents for physical. She reports persistent episodes of chest tightness and palpitations for the last 10 years. She lost her job 2 months ago and has been under increased stress. Patient went to the emergency room at [facility] to evaluate for worsening chest pain last week. The workup including labs and echocardiogram were normal. Patient reports exercising on a stationary bike and kayaking without having symptoms or chest pains or palpitations. She has a history of anxiety since childhood and tried counseling in 8th grade which was not helpful. Patient denies suicidal ideation and has been declining medical treatment for anxiety and depression. [facility] Medical History Abscess Irregular menses Migraine Ovarian cyst Surgical History History of mandibular surgery History of endometrial ablation Family History Mother Mental health disorder Maternal Uncle Mental health disorder CAD (coronary artery disease), Onset Age: 44 Maternal Grandmother Mental health disorder CAD (coronary artery disease), Onset Age: 60 Social History Household Members Other:: marreid, 3 children (17-9), in , Housing: Other Housing Other:: [facility] Patient Tobacco Use Status: Former Tobacco user e-Cigarette/Vaping Use: Never Used service: No Current occupational status: employed Cognitive needs: No Hearing needs: No Vision needs: Yes Female Reproductive History Menstrual Age of Menarche: 12 Questionnaire PHQ-9 Over the last 2 weeks, how often have you been bothered by any of the following problems? 1. Little interest or pleasure in doing things: more than half the days 2. Feeling down, depressed, or hopeless: more than half the days 3. Trouble falling or staying asleep, or sleeping too much: nearly every day 4. Feeling tired or having little energy: nearly every day 5. Poor appetite or overeating: more than half the days 6. Feeling bad about yourself - or that you are a failure or have let yourself or your family down: more than half the days 7. Trouble concentrating on things, such as reading the newspaper or watching television: more than half the days 8. Moving or speaking so slowly that other people could have noticed. Or the opposite - being so fidgety or restless that you have been moving around a lot more than usual: not at all 9. Thoughts that you would be better off or of hurting yourself in some way: not at all Total score: 16 Depression Screening Interpretation: Positive (Patient will schedule an appointment with a therapist of her choice. She declined medical treatment) Depression Screening Follow-up: Existing condition and In treatment Depression Screening Done: Yes Source: Developed by Drs. Kody Taylor, Yoly Watts, Beka Guzmán and colleagues, with an educational martha from [employer]. Thrive Questionnaire Date Thrive assessed: 10/19/23 I am a: Patient What is your living situation today?: I have a steady place to live Within the past 12 months, did the food you bought not last and you didn't have the money to get more?: Never true Within the past 12 months, did you worry whether your food would run out before you got money to buy more?: Never true Do you have trouble paying for medicines?: No Do you have trouble getting transportation to medical appointments?: No Do you have trouble paying your heating and electricity bill?: No Do you have trouble taking care of your child, family member or friend?: No Do you have trouble with day-to-day activities such as bathing, preparing meals, shopping, managing finances, etc.?: No Are you currently unemployed and looking for a job?: Yes Are you interested in more education?: No THRIVE Score: 0 AUDIT C Alcohol Use Questionnaire (AUDIT-C) 1. How often do you have a drink containing alcohol?: 2-4 times a month 2. How many drinks containing alcohol do you have on a typical day when you are drinking?: 1 or 2 3. How often do you have six or more drinks on one occasion?: Never Total Score: 2 PALMIRA-7 AMB Questionnaire PALMIRA-7 Date PALMIRA - 7 assessed: 10/19/23 Feeling nervous, anxious, or on edge: 3 = Nearly every day Not being able to stop or control worryin = Nearly every day Worrying too much about different things: 3 = Nearly every day Trouble relaxin = Nearly every day Being so restless that it is hard to sit still: 3 = Nearly every day Becoming easily annoyed or irritable: 3 = Nearly every day Feeling afraid as if something awful might happen: 2 = More than half the days Total PALMIRA-7 score (0-4 normal; 5-9 mild; 10-14 moderate; 15-21 severe): 20 Source: Developed by Drs. Kdoy Taylor, Yoly Watts, Beka Guzmán and colleagues, with an educational martha from [employer]. Review of Systems Const All systems reviewed & are unremarkable except as noted in HPI and below Reports no additional complaints Eyes Reports no additional complaints ENT Reports no additional complaints Card Reports no additional complaints Resp Reports no additional complaints GI Reports no additional complaints Reports no additional complaints Physical exam (Primary Care) Vital Signs: Last Vital Signs Pulse 83 10/19/23 08:06 BP 102/66 10/19/23 08:06 Pulse Ox 98 10/19/23 08:06 Oxygen Delivery Method Room Air 10/19/23 08:06 BMI result Body Mass Index 43.1 Tobacco/Smoking Status: Tobacco use Status Tobacco use date assessed 10/19/23 10/19/23 08:12 Patient Tobacco Use Status Former Tobacco user 10/19/23 08:06 e-Cigarette/Vaping Use Never Used 10/19/23 08:06 PHQ-9: PHQ-9 Score PHQ-9: Total score 16 10/19/23 10:59 Depression Screening Interpretation: Positive (Patient will schedule an appointment with a therapist of her choice. She declined medical treatment) Depression Screening Follow-up: Existing condition and In treatment Thrive Assessment: Date of Thrive Assessment Date Thrive assessed 10/19/23 10/19/23 08:56 Const General: no acute distress HENMT Head: Yes normal to inspection Ears: hearing grossly normal bilaterally Face and sinus: Yes normal facial exam Mouth: Normal oral and palatal mucosa present Throat: Yes posterior oropharynx normal Eyes General: appearance normal, both eyes and all related structures Neck Neck: Yes no lymphadenopathy and Yes supple Resp Effort & Inspection: normal respiratory effort Auscultation: clear to auscultation bilaterally Cardio Rhythm: regular rhythm Heart sounds: S1 normal heart sound present and S2 normal heart sound present GI Inspection: Yes normal to inspection Palpation (GI): Soft to palpation Percussion: Yes normal to percussion Auscultation: normal bowel sounds Assessment and Plan Assessment & Plan (1) Plantar fasciitis, bilateral: Code(s): M72.2 - Plantar fascial fibromatosis Plan: refer to podiatry (2) Annual physical exam: Code(s): Z00.00 - Encounter for general adult medical examination without abnormal findings Plan: well balanced diet, regular exercise discussed with patient (3) Morbid obesity with BMI of 40.0-44.9, adult: Code(s): E66.01 - Morbid (severe) obesity due to excess calories; Z68.41 - Body mass index [BMI] 40.0-44.9, adult Plan: weight loss, increase physical activity, decreasing caloric intake discussed with the patient she declined referral to hostess host (4) Anxiety: Code(s): F41.9 - Anxiety disorder, unspecified Plan: Stress management mindfulness ,regular physical activity ,follow-up with the counselor discussed with the patient Orders: Referrals Podiatry Referral M72.2 - Plantar fascial fibromatosis Coding Level of Care Code Est Pt Prev Care 18-39y(50712) Diagnoses Plantar fasciitis, bilateral M72.2 Annual physical exam Z00.00 Morbid obesity with BMI of 40.0-44.9, adult E66.01; Z68.41 Anxiety F41.9
== END 2023-10-19 08:52 | disposition home or self-care (01) ==
PROVIDERS: Visit Provider Internal Medicine
DX: M72.2 Plantar fascial fibromatosis (principal); Z00.00 Encounter for general adult medical examination without abnormal findings; E66.01 Morbid (severe) obesity due to excess calories; Z68.41 Body mass index [BMI] 40.0-44.9, adult; F41.9 Anxiety disorder, unspecified
CPT/HCPCS: 99395

== ENCOUNTER 2024-01-02 09:06 | Outpatient (AMB) | payer OTHER, SELFPAY ==
[2024-01-02 09:11] VITALS: BP 126/80; PULSE 94; O2SAT 98; BMI 43.8
--- NOTE | 2024-01-02 09:14 | MHC.OFFWIV ---
Intake Vital Signs 01/02/24 09:11 Height 5 ft 5.5 in Weight 267 lb 8 oz BMI 43.8 BP 126/80 Blood Pressure Location Lt brachial Position Sitting Pulse 94 Pulse Source Pulse Oximeter Pulse Oximetry (%) 98 Oxygen Delivery Method Room Air Intake Visit Reasons: EP- possible yeast infection Patient Tobacco Use Status: Former Tobacco user Allergies latex Allergy (Mild, Verified 01/02/24 09:13) Swelling Medication List - Last Reconciled 01/02/24 by Kapil Lopez MD [id number] 250-250-65 mg (Excedrin Migraine) 2 tabs PO Q6H PRN HPI EP- possible yeast infection HPI Details Patient is a 38-year-old female who developed yeast infection easily Swim in chlorinated water over the next few days and now have vaginal itching and whitish discharge Patient says that she usually need more medication than usual I have sent Diflucan tablets for her she may take 1 daily for 3 days and if needed more But if symptoms resolves then she may stop after 3 doses Also encouraged her to discuss it further with OBGYN regarding recurrent yeast infections Review system reveals no fever no chills no abdominal pain no dysuria PFSH Medical History Abscess Irregular menses Migraine Ovarian cyst Surgical History History of mandibular surgery History of endometrial ablation Family History Mother Mental health disorder Maternal Uncle Mental health disorder CAD (coronary artery disease), Onset Age: 44 Maternal Grandmother Mental health disorder CAD (coronary artery disease), Onset Age: 60 Social History Household Members Other:: marreid, 3 children (17-9), in , Housing: Other Housing Other:: [employer] Patient Tobacco Use Status: Former Tobacco user e-Cigarette/Vaping Use: Never Used service: No Current occupational status: employed Cognitive needs: No Hearing needs: No Vision needs: Yes Female Reproductive History Menstrual Age of Menarche: 12 Review of Systems Const All systems reviewed & are unremarkable except as noted in HPI and below Physical Exam Vital Signs: Last Vital Signs Pulse 94 01/02/24 09:11 BP 126/80 01/02/24 09:11 Pulse Ox 98 01/02/24 09:11 Oxygen Delivery Method Room Air 01/02/24 09:11 BMI result Body Mass Index 43.8 Const General: no acute distress Orientation/consciousness: patient oriented x3 Eyes General: appearance normal, both eyes and all related structures Resp Effort & Inspection: normal respiratory effort and able to speak in complete sentences Neuro General: patient oriented x3 Psych Mental Status: mental status grossly normal Assessment & Plan Assessment & Plan (1) Vaginal yeast infection: Code(s): B37.31 - Acute candidiasis of vulva and vagina Plan Patient is a 38-year-old female who developed yeast infection easily Swim in chlorinated water over the next few days and now have vaginal itching and whitish discharge Patient says that she usually need more medication than usual I have sent Diflucan tablets for her she may take 1 daily for 3 days and if needed more But if symptoms resolves then she may stop after 3 doses Also encouraged her to discuss it further with OBGYN regarding recurrent yeast infections Review system reveals no fever no chills no abdominal pain no dysuria Medications: New fluconazole 150 mg PO DAILY 10 tabs 0RF Yeast infection 10 days Coding Level of Care Code Est Pt Level 3 (94977) Diagnoses Vaginal yeast infection B37.31
== END 2024-01-02 09:27 | disposition home or self-care (01) ==
PROVIDERS: PCP Internal Medicine; Visit Provider Internal Medicine
DX: B37.31 Acute candidiasis of vulva and vagina (principal)
CPT/HCPCS: 99213

== ENCOUNTER 2024-02-26 15:29 | Outpatient (REF) | payer OTHER, SELFPAY ==
--- NOTE | ~2024-02-26 | US_ITS ---
EXAMINATION: US PELVIS CLINICAL INFORMATION: Leiomyoma of uterus. COMPARISON: Multiple pelvic ultrasounds most recently 08/21/2023. TECHNIQUE: Ultrasound of the pelvis is performed using both transabdominal and transvaginal transducers along with Doppler. Transvaginal imaging is performed due to inadequate visualization transabdominally. FINDINGS: Uterus: The uterus is anteverted and measures 8.2 x 4.1 x 5.5 cm. The double wall endometrial thickness is 0.4 mm. The uterus is smooth in contour and has a heterogeneous myometrial echogenicity. Only a single fundal fibroid is present on the current exam, slightly larger than previous measuring 1.5 x 1.2 x 1.4 cm (previously 1.2 x 1.1 x 0.9 cm). Smaller fibroid seen on the prior study not identified on the current exam. Cysts are noted in the cervix with some punctate areas of calcification as well. Adnexa: Both ovaries are visualized. There is normal color flow to the adnexa. There is no ovarian torsion. There is no pelvic ascites or fluid collection. Right ovary measures 3.2 x 1.6 x 1.9 cm for a volume of 5.1 mL. Left ovary measures 3.0 x 1.7 x 1.9 cm for a volume of 5.1 mL. US/US pelvic and transvaginal IMPRESSION: Single fundal fibroid is present, slightly larger than previous. Electronically signed by: Ede Weems MD 04/19/2024 10:46 AM [facility]
== END 2024-02-26 15:30 | disposition home or self-care (01) ==
LOC: HO.HMGCX 15:29
PROVIDERS: PCP Internal Medicine; Visit Provider Obstetrics & Gynecology
DX: D25.9 Leiomyoma of uterus, unspecified (principal)
CPT/HCPCS: 76830; 76856

== ENCOUNTER 2024-03-14 08:47 | Outpatient (AMB) | payer OTHER, SELFPAY ==
--- NOTE | 2024-03-14 08:49 | MHC.OFFWIV ---
Intake Vital Signs 03/14/24 08:51 Height 5 ft 5.5 in Weight 265 lb BMI 43.4 BP 130/80 Blood Pressure Location Lt brachial Position Sitting Pulse 89 Pulse Source Pulse Oximeter Pulse Oximetry (%) 98 Oxygen Delivery Method Room Air Intake Visit Reasons: EP Abscess on lt arm, warm, red, swollen Intake Note: Patient here for abscess under left arm which has been present for about 1 week, is very red and swollen. Patient Tobacco Use Status: Former Tobacco user Allergies latex Allergy (Mild, Verified 03/14/24 08:53) Swelling Do you need a note to return to daycare/school/sports/work: No HPI HPI Comments History of Present Illness Details Patient is a 38-year-old female complaining of an abscess under her left armpit for the past 3 days. She says it was draining some. Last night but it is too tender and to awkward of a position for her to try to drain it herself. She was using warm compresses. She denies a history of hidradenitis suppurativa. She tells me she has had quite a few abscesses in the last month, she states they started out as a little pimple and then get larger and eventually she can drain them but because of the location of this 1, it is difficult to drain. She tells me she has used Hibiclens in the past but has not used it recently. She tells me that she has had multiple abscesses and 1 turned into a bacteremia and she became septic and very sick. [facility] Medical History Abscess Irregular menses Migraine Ovarian cyst Surgical History History of mandibular surgery History of endometrial ablation Family History Mother Mental health disorder Maternal Uncle Mental health disorder CAD (coronary artery disease), Onset Age: 44 Maternal Grandmother Mental health disorder CAD (coronary artery disease), Onset Age: 60 Social History Household Members Other:: marreid, 3 children (17-9), in , Housing: Other Housing Other:: [facility] Patient Tobacco Use Status: Former Tobacco user e-Cigarette/Vaping Use: Never Used service: No Current occupational status: employed Cognitive needs: No Hearing needs: No Vision needs: Yes Female Reproductive History Menstrual Age of Menarche: 12 Review of Systems Const All systems reviewed & are unremarkable except as noted in HPI and below Physical Exam Vital Signs: Last Vital Signs Pulse 89 03/14/24 08:51 BP 130/80 03/14/24 08:51 Pulse Ox 98 03/14/24 08:51 Oxygen Delivery Method Room Air 03/14/24 08:51 BMI result Body Mass Index 43.4 Const General: cooperative, healthy appearing, comfortable, no acute distress and well developed Orientation/consciousness: patient oriented x3 Limitations: no limitations HEENT Head: Yes normal to inspection Eyes General: appearance normal, both eyes and all related structures Neck Neck: Yes normal visual inspection and Yes full ROM Resp Effort & Inspection: normal respiratory effort and able to speak in complete sentences Skin Other: Left axilla has 1 cm area of erythema and warmth with central pinpoint drainage, able to drain 1 cc of purulent material followed by scant blood. Induration surrounding the abscess Neuro General: patient oriented x3 Extrem General: Yes normal to inspection Assessment & Plan Assessment & Plan (1) Abscess of axilla, left: Code(s): L02.412 - Cutaneous abscess of left axilla Plan: Educated patient this is likely secondary to hidradenitis suppurativa and recommended she follow up with her PCP to explore this avenue. We did not send a culture because there was not a lot of purulent fluid I was able to express. I did send some clindamycin cream which she can use when she 1st notices a pimple to try to avoid it turning into an abscess. Also recommended if she has tested positive for MRSA in the past to do a Hibiclens decolonization. As the abscess was not drainable and indurated, sent doxycycline. Plan see above Medications: New doxycycline hyclate 100 mg PO BID 10 tabs 0RF clindamycin phosphate 1% 1 appl topical BID PRN 30 mL 0RF folliculitis Coding Level of Care Code Est Pt Level 4 (80777) Diagnoses Abscess of axilla, left L02.412
--- OUTSIDE RECORDS SUMMARY | 2024-03-14 08:49 | XMS_ITS ---
Author Organization [facility] Address [address] [place] [address] Care Team Providers Care Cooper Helper Name Role Phone Shin LINARES, Adenike Busch Primary Care Provider Un available No Kymberly Unavailable [phone] ALLERGIES Allergen (clinical drug ingredient) Drug/Non Drug Allergy documented on EMR Reaction Allergy Type Onset Date Status Latex Latex rash/swelling Allergy Active REASON FOR VISIT Pcp-10/11, Heel pain MEDICATIONS Medication SIG (Take, Route, Fr equency, Duration) Notes Start Date End Date Status Excedrin Migraine Ac tive Advil Active Physical Therapy . . . 2-3x/week for 3-4 weeks Active SOCIAL HISTORY Tobacco Use: Social History Observation Description Date Details (start date - stop date) Former Smoker NA - NA Sex Assigned At : Social History Observation Description Sex Assigned At Unknown Tobacco Use/Smoking Question Answer Notes Are you a: former smoker Additional Findings: Tobacco Non-User Current no n-smoker Alcohol Screen Question Answer Notes Did you have a drink containing alcohol in the p ast year? Yes Points 0 Interpretation Negative VITAL SIGNS Height 5 ft 5.5 in in 02/01/2024 Weight 265 lbs 02/01/2024 BMI 43.42 kg/m2 02/01/2024 Encounters Encounter Location Date Provider Diagnosis [facility] [address] [place] [address] 02/01/2024 Kymberly Perica Pain in right foot M79.671 ; Plantar fasciitis, bilateral M72.2 ; Calcaneal spur, right foot M77.31 ; Other myositis of right foot M60.871 ; Bursitis of right foot M77.51 ; Pain in left foot M79.672 ; Calcaneal spur, left foot M77.32 ; Other myositis of left foot M60.872 and Bursitis of left foot M77.52 ASSESSMENTS Encounter Date Diagnosis Assessment Notes Treatment Notes Treatment Clinical Notes 02/01/2024 Pain in right foot (ICD-10 - M79.671) 02/01/2024 Plantar fasciitis, bilateral (ICD-10 - M72.2) Patient Educated with: HEEL CORD STRETCHES.pdf (HEEL CORD STRETCHES.pdf) Patient Educated with: RICE THERAPY.pdf (RICE THERAPY.pdf) 02/01/2024 Calcaneal spur, right foot (ICD-10 - M77.31) 02/01/2024 Other myositis of right foot (ICD-10 - M60.871) 02/01/2024 Bursitis of right foot (ICD-10 - M77.51) 02/01/2024 Pain in left foot (ICD-10 - M79.672) 02/01/2024 Calcaneal spur, left foot (ICD-10 - M77.32) 02/01/2024 Other myositis of left foot (ICD-10 - M60.872) 02/01/2024 Bursitis of left foot (ICD-10 - M77.52) PLAN OF TREATMENT Medication Medication Name Sig Start Date Stop Date Notes Physical Therapy . . . 2-3x/week for 3-4 weeks 02/01/2024 Treatment Notes Assessment Notes Plantar fasciitis, bilateral Patient Edu cated with: HEEL CORD STRETCHES.pdf (HEEL CORD STRETCHES.pdf) Patient Educated with: RICE THERAPY.pdf (RICE THERAPY.pdf) Pending Test Test Name Order Date X ray : Foot, left 3V 02/01/2024 X ray : Foot, right 3V 02/01/2024 Next Appt Details Follow Up: 6 Weeks, Reason: Provider Name:Kymberly alfred, 04/01/2024 02:00:00 PM, [address] [place] [address], [phone], Progress Notes * Examination Category Sub-Category Detail Notes Heel Pain INSPECTION REVEALS: Pain on Palp ation to Plantar Fascia med. and central bands, intrinsic musc., infra-calcaneal bursa, and med calc tubercle, B/L, No pain: posterior/superior heel, achilles bursa/tendon, sinus tarsi, peroneals, or with lateral heel compression; no limited STJ ROM, calor, or ecchymosis Neurological SENSORY: Neurological exa m reveals intact sensorium, pain sensation normal, vibration sensation intact, pinprick sensation is normal in the lower extremities, Pt denies, anesthesia, burning, paresthesia, tingling, B/L TINEL'S COMPRESSION: Negative tarsal db jaylene, karolina pedis, and medial calcaneal nerves DEEP TENDON REFLEXES: Achilles, 2/4, B/L Dermatologic SKIN FINDINGS: Skin exam reveal s normal texture, elasticity, and turgor. There are no masses. The interspaces are clear Orthopedic FOOTWEAR: shoe gear proper ties exacerbate patients foot/toe deformity MUSCLE STRENGTH: 5/5 all groups in a symmetrical fashion , B/L General Examination GENERAL APPEARANCE: Reveals a pleasant, alert, well- nourished, well-developed, well hydrated individual, who demonstrates proper attention to hygiene/body habitus, and is in no acute distress, Pt serves as own historian for office visit today ORIENTED: person, place, and t oli Vascular DP PULSES(B): 3/4, B/L PT PULSES(B): 3/4, B/L CAPILLARY FILL TIME: immediate, all digi ts, B/L TEMPERTURE GRADIENT(C): warm to cool, pr oximal to distal, B/L TROPHIC CONDITION-TEXTURE/ELASTICITY/TURGOR/HAIR GROWTH(B): normal, B/L EDEMA(C): absent, B/L PIGMENTATION: normal, B/L X-Rays - IMAGING REPORT Findings: normal b one and soft tissue density consistent for patients age and sex, navicular/cuneiform plantar subluxation with anterior cyma line, positive infra-calcaneal exostosis, no coalitions identified , positive retro-calcaneal exostosis Fracture: Negative fractures i dentified Views: 3 views of Foot, LAT , LO, AP , B/L Clinical Indication(s): Evaluate for Fra cture, Evaluate Biomechanical Deformity History and Physical Notes * HPI (History of Present Illness) Category Sub-Category Detail Notes Heel pain Duration: 7 months Nature: tenderness, sharp pa in, stiffness Location: Proximal plantar asp ect of Heel , RIGHT greater than Left Onset/Cause: gradual , standing Aggravated: standing, walking, w alking first thing in the morning/after rest Course: worse , recurrent Treatments: rest/alter normal da martita activity , change in shoes , pre-fabricated orthoses
--- OUTSIDE RECORDS SUMMARY | 2024-03-14 08:49 | XMS_ITS ---
Author Organization [facility] Address [address] [place] [address] Care Team Providers Care Intensive Care Specialist Name Role Phone Shin LINARES, Adenike Busch Primary Care Provider Un available Kymberly Sarabia Unavailable [phone] REASON FOR VISIT DME L1930 Encounters Encounter Location Date Provider Diagnosis [facility] [address] [place] [address] 02/01/2024 Kymberly Sarabia Plantar fasciitis, bilateral M72.2 ASSESSMENTS Encounter Date Diagnosis Assessment Notes Treatment Notes Treatment Clinical Notes 02/01/2024 Plantar fasciitis, bilateral (ICD-10 - M72.2) PLAN OF TREATMENT Next Appt Details Provider Name:Kymberly alfred, 04/01/2024 02:00:00 PM, [address] [place], [address],
--- OUTSIDE RECORDS SUMMARY | 2024-03-14 08:49 | XMS_ITS ---
Author Organization [facility] jennifer Torres Address [address] [place] [address] Care Team Providers Care Real Estate Officer Name Role Phone Shin LINARES, Adenike Busch Primary Care Provider Un available Kymberly Sarabia Unavailable [phone] REASON FOR VISIT Purchased Pedag Ot Encounters Encounter Location Date Provider Diagnosis [address] [address] 02/01/2024 Kymberly Sarabia PLAN OF TREATMENT Next Appt Details Provider Name:Kymberly alfred, 04/01/2024 02:00:00 PM, [address] [place], [address],
--- OUTSIDE RECORDS SUMMARY | 2024-03-14 08:49 | XMS_ITS | Patient Health Record ---
[facility] Address [address] [place] [address] Care Team Providers Care Maintenance Clerk Name Role Phone Shin LINARES, Adenike Busch Primary Care Provider Un available Kymberly Sarabia Unavailable [phone] ALLERGIES Allergen (clinical drug ingredient) Drug/Non Drug Allergy documented on EMR Reaction Allergy Type Onset Date Status Latex Latex rash/swelling Allergy Active REASON FOR REFERRAL Diagnosis 1 Pain in unspecified foot (M79.673) Referring Provider First Name Adenike Washington Referring Provider Last Name Shin Referring Provider Speciality Internal M edicine [facility] Referred Provider Kymberly Sarabia Referred Address [address] [facility] [address] ,[place], [place],[address], Referred Provider Specialty Podiatry Referral Priority Routine MEDICATIONS Medication SIG (Take, Route, Fr equency, [...] 02/01/2024 Encounters Encounter Location Date Provider Diagnosis [address] [address] 02/01/2024 Kymberly Sarabia Pain in right foot M79.671 ; Plantar fasciitis, bilateral M72.2 ; Calcaneal spur, right foot M77.31 ; Other myositis of right foot M60.871 ; Bursitis of right foot M77.51 ; Pain in left foot M79.672 ; Calcaneal spur, left foot M77.32 ; Other myositis of left foot M60.872 and Bursitis of left foot M77.[address] [address] 02/01/2024 Kymberly Sarabia Plantar fasciitis, bilateral M72.[address] [address] 02/01/2024 Kymberly Sarabia ASSESSMENTS Encounter Date Diagnosis Assessment Notes Treatment Notes Treatment Clinical Notes 02/01/2024 Pain in right foot (ICD-10 - M79.671) 02/01/2024 Plantar fasciitis, bilateral (ICD-10 - M72.2) 02/01/2024 Plantar fasciitis, bilateral (ICD-10 - M72.2) [...] foot (ICD-10 - M77.52) PLAN OF TREATMENT Pending Test Test Name Order Date X ray : Foot, left 3V 02/01/2024 X ray : Foot, right 3V 02/01/2024 Next Appt Details Provider Name:Kymberly alfred, 04/01/2024 02:00:00 PM, [address] [place], [address], Insurance Providers Payer Name Payer Address Payer Phone Subscriber Number Group Number Insured Name Patient Relationship to Insured Coverage Start Date Coverage End Date [facility] [address] [place] [address] [id number] Tracie Schultz Self - patient is the insured MEDICAL (GENERAL) HISTORY Medical History History ICD Code covid-19 Headaches/Migraines Chicken pox Joint implants/screws Surgical History Surgery Date(Month/Year) jaw surgery 2002 I&D for Infection 2018 Abcess Infection 2x 2019
[2024-03-14 08:51] VITALS: BP 130/80; PULSE 89; O2SAT 98; BMI 43.4
== END 2024-03-14 09:07 | disposition home or self-care (01) ==
PROVIDERS: PCP Internal Medicine; Visit Provider Physician Assistant
DX: L02.412 Cutaneous abscess of left axilla (principal)

== ENCOUNTER → 2024-03-14 08:47 | Outpatient (BNVA) | payer OTHER, SELFPAY | PROVIDERS: PCP Internal Medicine | DX: L02.412 Cutaneous abscess of left axilla (principal) | CPT/HCPCS: 99212 ==

== ENCOUNTER 2024-05-27 09:33 | Outpatient (AMB) | payer OTHER, SELFPAY ==
--- OUTSIDE RECORDS SUMMARY | 2024-05-27 09:47 | XMS_ITS | Patient Health Record ---
Author [facility] Address [address] [facility] [place] [address] Care Team Providers Care Trade Mark Attorney Name Role Phone Shin LINARES, Adenike Busch Primary Care Provider Un available Kymberly Sarabia Unavailable [phone] Allergies Allergen (clinical drug ingredient) Drug/Non Drug Allergy documented on EMR Reaction Allergy Type Onset Date Status Latex Latex rash/swelling Allergy Active Reason For Referral Diagnosis 1 Pain in unspecified foot (M79.673) Referring Provider First Name Adenike Washington Referring Provider Last Name Shin Referring Provider Speciality Internal M edicine [facility] Referred Provider Kymberly Sarabia Referred Address [address] ,[place], [place],[address], Referred Provider Specialty Podiatry Referral Priority Routine Medications Medication SIG (Take, Route, Fr equency, Duration) Notes Start Date End Date Status Physical Therapy . . . 2-3x/week for 3-4 weeks Active Excedrin Migraine Ac tive Advil Active Social History Tobacco Use: Social History Observation Description Date Details (start date - stop date) Former Smoker NA - NA Tobacco Use/Smoking Question Answer Notes Are you a: former smoker Additional Findings: Tobacco Non-User Current no n-smoker Alcohol Screen Question Answer Notes Did you have a drink containing alcohol in the p ast year? Yes Points 0 Interpretation Negative Vital Signs Height 5 ft 5.5 in in 02/01/2024 Weight 265 lbs 02/01/2024 BMI 43.42 kg/m2 02/01/2024 Encounters Encounter Location Date Provider Diagnosis [address] [address] 02/01/2024 Kymberly Sarabia Pain in right foot M79.671 ; Plantar fasciitis, bilateral M72.2 ; Calcaneal spur, right foot M77.31 ; Other myositis of right foot M60.871 ; Bursitis of right foot M77.51 ; Pain in left foot M79.672 ; Calcaneal spur, left foot M77.32 ; Other myositis of left foot M60.872 and Bursitis of left foot M77.[address] [address] 02/01/2024 Kymberly Sarabia Plantar fasciitis, bilateral M72.[address] [address] 02/01/2024 Kymberly Sarabia [address] [address] 04/01/2024 Kymberly Sarabia Assessments Encounter Date Diagnosis (ICD Code) Assessment Notes Treatment Notes Treatment Clinical Notes Section Notes 02/01/2024 Pain in right foot (ICD-10 [...] Bursitis of left foot (ICD-10 - M77.52) Plan Of Treatment Pending Test Test Name Order Date X ray : Foot, left 3V 02/01/2024 X ray : Foot, right 3V 02/01/2024 Insurance Providers Payer Name Payer Address Payer Phone Subscriber Number Group Number Insured Name Patient Relationship to Insured Coverage Start Date Coverage End Date [facility] [address] [place] [address] [id number] Tracie Schultz Self - patient is the insured Medical (General) History Medical History History ICD Code covid-19 Headaches/Migraines Chicken pox Joint implants/screws Surgical History Surgery Date(Month/Year) jaw surgery 2002 I&D for Infection 2018 Abcess Infection 2x 2019
--- OUTSIDE RECORDS SUMMARY | 2024-05-27 09:47 | XMS_ITS ---
Author Organization [facility] Address [address] [place] [address] Care Team Providers Care Food Assembler Commissary Kitchen Name Role Phone Shin LINARES, Adenike Busch Primary Care Provider Un available Kymberly Sarabia Unavailable [phone] Medications Medication SIG (Take, Route, Fr equency, Duration) Notes Start Date End Date Status Physical Therapy . . . 2-3x/week for 3-4 weeks Active Excedrin Migraine Ac tive Advil Active Encounters Encounter Location Date Provider Diagnosis [facility] [address] [place] [address] 04/01/2024 Kymberly Sarabia Plan Of Treatment No Information Progress Notes * Tracie NORIEGA DDOB:[birth year] (38 yo F)Acc No.[id number]:04/01/2024 Progress Notes Patient:?Tracie NORIEGA Provider:?Kymberly Sarabia DPM :1985???Age:38 Y???Sex:Female D ate:04/01/2024 Address:[place] Pcp:Pardeep Garrett Subjective: * Chief Complaints: * ??? * Medical History:? * Medications:?Taking Advil , Taking Excedrin Migraine , Taking Physical Therapy . . . . 2-3x/week Objective: * Vitals:? Assessment: Plan: * Treatment: * Images: * The named appointment provid er may or may not be the originator of this progress note, and it is not deemed complete until electronically signed by the appointment provider. Sign off status: Pending * Provider:?Kymberly Sarabia DPM Date:?04/2024 Generated for Meredith theodore/Jacque/Malathi on:?05/27/2024 09:47 AM EST
--- OUTSIDE RECORDS SUMMARY | 2024-05-27 09:47 | XMS_ITS ---
Author Organization [facility] Address [address] [place] [address] Care Team Providers Care Entry Level Staff Accountant Name Role Phone Shin LINARES, Adenike Busch Primary Care Provider Un available Kymberly Sarabia Unavailable [phone] REASON FOR VISIT 04/01/24 NS Encounters Encounter Location Date Provider Diagnosis [facility] [address] [place] [address] 04/01/2024 Kymberly Sarabia Plan Of Treatment No Information Progress Notes * Tracie NORIEGA DDOB:[birth year] (38 yo F)Acc No.[id number]:04/01/2024 Patient:?Tracie NORIEGA :1985???Age:38 Y???Sex:Female Address:[address], [place], [address] * true * Date:? Generated for Printi ewelina/Jacque/eTransmitting on:?05/27/2024 09:46 AM EST
--- OUTSIDE RECORDS SUMMARY | 2024-05-27 09:47 | XMS_ITS ---
Author Organization [facility] Address [address] [place] [address] Care Team Providers Care Customer Service Sales Consultant Name Role Phone Shin LINARES, Adenike Busch Primary Care Provider Un available Kymberly Sarabia Unavailable [phone] REASON FOR VISIT Purchased Pedag Ot Encounters Encounter Location Date Provider Diagnosis [facility] [address] [place] [address] 02/01/2024 Kymberly Sarabia Plan Of Treatment No Information Progress Notes * Tracie NORIEGA DDOB:[birth year] (38 yo F)Acc No.[id number]:02/01/2024 Patient:?Tracie Noriega :1985???Age:38 Y???Sex:Female Address:[address], [place], [address] * true * Date:? Generated for Printi ewelina/Jacque/eTransmitting on:?05/27/2024 09:47 AM EST
[2024-05-27 10:09] VITALS: BP 100/60; PULSE 87; TEMP 36.6; O2SAT 98; BMI 43.4
--- NOTE | 2024-05-27 10:09 | AM.OFFWIN_ITS ---
Intake Vital Signs 05/27/24 10:09 Height 5 ft 5.5 in Weight 265 lb BMI 43.4 BP 100/60 Blood Pressure Location Lt brachial Position Sitting Pulse 87 Pulse Source Pulse Oximeter Temp 97.8 F Temp Source Oral Pulse Oximetry (%) 98 Oxygen Delivery Method Room Air Intake Visit Reasons: EP ? sinus infection Intake Note: Pt is here today c/o sinus infection Patient Tobacco Use Status: Former Tobacco user Allergies latex Allergy (Mild, Verified 05/27/24 10:12) Swelling HPI HPI Comments History of Present Illness Details She presents to office with 4 days of congestion/sneezing She said initially + sneeze and ST + headache, L sided facial pressure she has tried mucinex yesterday without relief Warm shower helped symptoms Some each clogged feeling, no pain Pt denies fever or chills + cough today which she believes is post nasal drip Abscess L lower abdomen She has issues with skin infections and gets them a lot This one she noticed this am and unsure how long it has been there + red and tender No drainage PFSH Medical History (Updated 05/27/24 @ 10:33 by Naz Chase PA-C) Abscess Irregular menses Migraine Ovarian cyst Surgical History History of mandibular surgery History of endometrial ablation Family History Mother Mental health disorder Maternal Uncle Mental health disorder CAD (coronary artery disease), Onset Age: 44 Maternal Grandmother Mental health disorder CAD (coronary artery disease), Onset Age: 60 Social History Household Members Other:: marreid, 3 children (17-9), in , Housing: Other Housing Other:: [facility] Patient Tobacco Use Status: Former Tobacco user e-Cigarette/Vaping Use: Never Used service: No Current occupational status: employed Cognitive needs: No Hearing needs: No Vision needs: Yes Female Reproductive History Menstrual Age of Menarche: 12 Review of Systems Const Denies chills, Denies fever(s) and Reports headache(s) Eyes Denies blurry vision ENT Denies ear discharge, Denies otalgia, Reports headache(s), Reports nasal congestion, Reports sinus pain and Denies sore throat Card Denies chest pain and Denies syncope Resp Reports cough GI Denies abdominal pain Musc Denies myalgias Skin/Breast Reports lesions (abdomen abscess) and Reports erythema Neuro Denies syncope and Reports headache(s) Physical Exam Vital Signs: Last Vital Signs Temp 97.8 F 05/27/24 10:09 Pulse 87 05/27/24 10:09 BP 100/60 05/27/24 10:09 Pulse Ox 98 05/27/24 10:09 Oxygen Delivery Method Room Air 05/27/24 10:09 BMI result Body Mass Index 43.4 General: Non-toxic, NAD. Speaking full sentences. Skin: Warm dry throughout Lower L quadrant abdomen has area of erythema with central dark erythema. approx 2cm x 3xm oval shaped. SLightly tender to palpation without induration or fluctuance. Eye: EOMI HENT: Airway patent. Uvula midline. No pharyngeal erythema or edema. No HOME HEALTH PHYSICAL THERAPIST. + tenderness to palpation frontal and L maxillary sinuses Bilateral canals clear. TM non-erythematous, non-bulging. No TM perforation or hemotympanum noted. Respiratory: CTA bilaterally. No wheezes, rales or rhonchi Cardiac: RRR. No murmur MSK: Full ROM extremities. Neurology: Alert. No aphasia or facial droop. Gait without abnormality Psych: Good mood and affect Assessment & Plan Assessment & Plan (1) Abscess: Comment: 2 surgeries for inner buttock abcess. also she had 1 due to leaving in packing Code(s): L02.91 - Cutaneous abscess, unspecified Plan: Warm compress No drainable lesion at this time Doxy with food F/U with deratology (2) Viral sinusitis: Code(s): J32.9 - Chronic sinusitis, unspecified; B97.89 - Other viral agents as the cause of diseases classified elsewhere Plan: No bacterial etiology noted on exam Excedrin orn pain as directed on box Call with concerns Orders: Referrals Dermatology Referral L02.91 - Cutaneous abscess, unspecified Medications: New doxycycline hyclate 100 mg PO BID 14 caps 0RF Coding Level of Care Code Est Pt Level 3 (68921) Diagnoses Abscess L02. Viral sinusitis J32.9; B97.89
== END 2024-05-27 10:44 | disposition home or self-care (01) ==
PROVIDERS: PCP Internal Medicine; Visit Provider Physician Assistant
DX: L02.91 Cutaneous abscess, unspecified (principal); J32.9 Chronic sinusitis, unspecified; B97.89 Other viral agents as the cause of diseases classified elsewhere

== ENCOUNTER → 2024-05-27 09:33 | Outpatient (BNVA) | payer OTHER, SELFPAY | PROVIDERS: PCP Internal Medicine; Visit Provider Physician Assistant | DX: L02.91 Cutaneous abscess, unspecified (principal); J32.9 Chronic sinusitis, unspecified; B97.89 Other viral agents as the cause of diseases classified elsewhere | CPT/HCPCS: 99212 ==

== ENCOUNTER 2024-06-25 08:46 | Outpatient (REF) | payer OTHER, SELFPAY | END 2024-06-25 08:47 | disposition home or self-care (01) | LOC: HO.LNP 08:46 | PROVIDERS: PCP Internal Medicine; Visit Provider Internal Medicine | DX: N30.01 Acute cystitis with hematuria (principal) | CPT/HCPCS: 81003; 87086; 99212 ==

== ENCOUNTER 2024-07-15 11:55 | Outpatient (REF) | payer OTHER, SELFPAY ==
[2024-07-16 11:48] LABS: CT PCR NOT DETECTED (Not Detect.); NG PCR NOT DETECTED (Not Detect.)
[2024-07-16 13:47] LABS: Bacterial Vaginosis PCR NEGATIVE (Negative); Candida Group PCR NOT DETECTED (Not Detect); Candida glab krusei PCR NOT DETECTED (Not Detect); Trichomonas vaginalis PCR NOT DETECTED (Not Detect)
== END 2024-07-15 11:56 | disposition home or self-care (01) ==
LOC: HO.LNP 11:55
PROVIDERS: PCP Internal Medicine; Visit Provider Obstetrics & Gynecology
DX: N76.0 Acute vaginitis (principal); B96.89 Other specified bacterial agents as the cause of diseases classified elsewhere; D25.9 Leiomyoma of uterus, unspecified
CPT/HCPCS: 81515; 87491; 87591; 99212

== ENCOUNTER 2024-07-15 11:55 | Outpatient (AMB) | payer OTHER, SELFPAY ==
[2024-07-15 11:57] VITALS: BMI 43.4
--- NOTE | 2024-07-15 11:57 | MHC.OFFVIS ---
Vital Signs 07/15/24 11:57 Height 5 ft 5.5 in Weight 265 lb BMI 43.4 Intake Visit Reasons: Ultrasound follow up Allergies latex Allergy (Mild, Verified 06/25/24 09:05) Swelling HPI Comments Details: Presenting for follow-up ultrasound. Doing well, no pelvic pain or pressure or abnormal uterine bleeding. The patient is complaining of vaginal foul odor with no associated vulvovaginal itching Pelvic ultrasound done on 04/19/2024 showed the following: Uterus: The uterus is anteverted and measures 8.2 x 4.1 x 5.5 cm. The double wall endometrial thickness is 0.4 mm. The uterus is smooth in contour and has a heterogeneous myometrial echogenicity. Only a single fundal fibroid is present on the current exam, slightly larger than previous measuring 1.5 x 1.2 x 1.4 cm (previously 1.2 x 1.1 x 0.9 cm). Smaller fibroid seen on the prior study not identified on the current exam. Cysts are noted in the cervix with some punctate areas of calcification as well. Adnexa: Both ovaries are visualized. There is normal color flow to the adnexa. There is no ovarian torsion. There is no pelvic ascites or fluid collection. Right ovary measures 3.2 x 1.6 x 1.9 cm for a volume of 5.1 mL. Left ovary measures 3.0 x 1.7 x 1.9 cm for a volume of 5.1 mL. [facility] Medical History Abscess Irregular menses Migraine Ovarian cyst Surgical History History of mandibular surgery History of endometrial ablation Family History Mother Mental health disorder Maternal Uncle Mental health disorder CAD (coronary artery disease), Onset Age: 44 Maternal Grandmother Mental health disorder CAD (coronary artery disease), Onset Age: 60 Social History Household Members Other:: marreid, 3 children (17-9), in , Housing: Other Housing Other:: [facility] Patient Tobacco Use Status: Former Tobacco user e-Cigarette/Vaping Use: Never Used service: No Current occupational status: employed Cognitive needs: No Hearing needs: No Vision needs: Yes Female Reproductive History Menstrual Age of Menarche: 12 Review of Systems Const All systems reviewed & are unremarkable except as noted in HPI and below Reports as per HPI and Reports no additional complaints GI Reports no additional complaints Reports no additional complaints Physical Exam Vital Signs: BMI result Body Mass Index 43.4 General: Yes no CVA tenderness External Female Exam: normal external appearance and normal appearance of the urethra Speculum Exam - Vagina: normal appearance of the vagina, normal palpation, no lesions and no masses Speculum Exam - Cervix: normal appearance of the cervix, normal palpation, no lesions, no masses and nontender Bimanual exam- vagina & uterus: normal bimanual exam, normal palpation, uterine size normal, normal palpation, uterine shape normal, No Cervical tenderness present and non-tender Bimanual Exam- Adnexa, other: normal adnexae Back/Spine/Pelvis Back: no CVA tenderness Assessment & Plan Assessment & Plan (1) Uterine myoma: Code(s): D25.9 - Leiomyoma of uterus, unspecified Category: Medical Plan: Discussed with the patient the findings on pelvic ultrasound & the risk of myosarcoma; in addition reviewed with the patient that malignancy and pre malignancy cannot be ruled out without hysterectomy for pathological evaluation ; furthermore, explained to the patient the limitation of pelvic ultrasound and endometrial biopsy in the setting. Discussed with the patient the options of treatment including expectant management versus hysterectomy; the pros and cons, risks benefits of each approach were discussed with the patient including the fact that in cases of myosarcoma, surgical treatment can lead to early diagnosis and positively affects the prognosis; after further discussion, the patient decided to proceed with expectant management. Will repeat pelvic ultrasound periodically. Instructions given to patient to call in case any of the following occurs: pressure symptoms, abnormal uterine bleeding, pelvic pain; and to schedule a 12 months pelvic ultrasound (order placed) and a follow-up appointment . All questions answered, the patient verbalized understanding and agreed with the plan . (2) Bacterial vaginosis: Code(s): N76.0 - Acute vaginitis; B96.89 - Other specified bacterial agents as the cause of diseases classified elsewhere Category: Medical Plan: GC and chlamydia cultures with BV panel taken. Per CDC recommendation, will screen for STI, HepBs Ag, HIV, RPR, Hep C Ab ordered. Will treat with Flagyl 500 mg p.o. b.i.d. x 7 days, Instructions given to the patient to refrain from sexual activity or to use condoms consistently and correctly during the BV treatment regimen, not to douch, it might increase the risk for relapse, and to call if symptoms persist or recur. Orders: Orders Hepatitis B Surface Antigen Today B96.89 - Other specified bacterial agents as the cause of diseases classified elsewhere, N76.0 - Acute vaginitis Hepatitis C Antibody Today B96.89 - Other specified bacterial agents as the cause of diseases classified elsewhere, N76.0 - Acute vaginitis Syphilis Screen Today B96.89 - Other specified bacterial agents as the cause of diseases classified elsewhere, N76.0 - Acute vaginitis HIV Ab/Ag Today B96.89 - Other specified bacterial agents as the cause of diseases classified elsewhere, N76.0 - Acute vaginitis US pelvic and transvaginal 12 Months D25.9 - Leiomyoma of uterus, unspecified Medications: New metronidazole 500 mg PO BID 7 days 14 tabs 0RF Coding Level of Care Code Est Pt Level 3 (55629) Diagnoses Uterine myoma D25.9 Bacterial vaginosis N76.0; B96.89
--- OUTSIDE RECORDS SUMMARY | 2024-07-15 14:34 | XMS_ITS | Patient Health Record ---
[facility] Address [address] [place] [address] Care Team Providers Care Account Management Assistant Name Role Phone Shin LINARES, Adenike Busch Primary Care Provider Un available Kymberly Sarabia Unavailable [phone] Allergies Allergen (clinical drug ingredient) Drug/Non Drug Allergy documented on EMR Reaction Allergy Type Onset Date Status Latex Latex rash/swelling Allergy Active Reason For Referral Diagnosis 1 Pain in unspecified foot (M79.673) Referring Provider First Name Adenike Washington Referring Provider Last Name Shin Referring Provider Speciality Internal M edicine [facility] Brian Referred Provider Kymberly Sarabia Referred Address [address] ,[place], [place],[address], Referred Provider Specialty Podiatry Referral Priority Routine [...] 02/01/2024 Encounters Encounter Location Date Provider Diagnosis [address] [address] 02/01/2024 Kymberly Sarabia Pain in right foot M79.671 ; Plantar fasciitis, bilateral M72.2 ; Calcaneal spur, right foot M77.31 ; Other myositis of right foot M60.871 ; Bursitis of right foot M77.51 ; Pain in left foot M79.672 ; Calcaneal spur, left foot M77.32 ; Other myositis of left foot M60.872 and Bursitis of left foot M77.[address] [address] 02/01/2024 Kymberly Sarabia Plantar fasciitis, bilateral M72.[address] [address] 02/01/2024 Kymberly Sarabia [address] [address] 04/01/2024 Kymberly Sarabia Assessments Encounter Date Diagnosis [...] Insured Coverage Start Date Coverage End Date [facility] [address] [place] [id number] Tracie Schultz Self - patient is the insured Medical (General) History Medical History History ICD Code covid-19 Headaches/Migraines Chicken pox Joint implants/screws Surgical History Surgery Date(Month/Year) jaw surgery 2002 I&D for Infection 2018 Abcess Infection 2x 2019
--- OUTSIDE RECORDS SUMMARY | 2024-07-15 14:34 | XMS_ITS ---
Author Organization [facility] Address [address] [place] [address] Care Team Providers Care Top Cutter Name Role Phone Shin LINARES, Adenike Busch Primary Care Provider Un available Kymberly Sarabia Unavailable [phone] REASON FOR VISIT 04/01/24 NS Encounters Encounter Location Date Provider Diagnosis [facility] [address] [place] [address] 04/01/2024 Kymberly Sarabia Plan Of Treatment No Information Progress Notes * Tracie NORIEGA DDOB:[birth year] (38 yo F)Acc No.[id number]:04/01/2024 Patient:?Tracie NORIEGA :1985???Age:38 Y???Sex:Female Address:[address], [place], [address] * true * Date:? Generated for Printi ewelina/Jacque/eTransmitting on:?07/15/2024 02:34 PM EST
--- OUTSIDE RECORDS SUMMARY | 2024-07-15 14:34 | XMS_ITS ---
Author Organization [facility] Address [address] [place] [address] Care Team Providers Care Track Walker Name Role Phone Shin LINARES, Adenike Busch Primary Care Provider Un available Kymberly Sarabia Unavailable [phone] REASON FOR VISIT Purchased Pedag Ot Encounters Encounter Location Date Provider Diagnosis [facility] [address] [place] [address] 02/01/2024 Kymberly Sarabia Plan Of Treatment No Information Progress Notes * Tracie NORIEGA DDOB:[birth year] (38 yo F)Acc No.[id number]:02/01/2024 Patient:?Tracie Noriega :1985???Age:38 Y???Sex:Female Address:[address], [place], [address] * true * Date:? Generated for Printi ewelina/Jacque/eTransmitting on:?07/15/2024 02:34 PM EST
--- OUTSIDE RECORDS SUMMARY | 2024-07-15 14:34 | XMS_ITS ---
Author Organization [facility] Address [address] [place] [address] Care Team Providers Care Soup Person Name Role Phone Shin LINARES, Adenike Busch Primary Care Provider Un available Kymberly Sarabia [phone] Medications Medication SIG (Take, Route, Fr equency, Duration) Notes Start Date End Date Status Physical Therapy . . . 2-3x/week for 3-4 weeks Active Excedrin Migraine Ac tive Advil Active Encounters Encounter Location Date Provider Diagnosis [facility] [address] [place] [address] 04/01/2024 Kymberly Sarabia Plan Of Treatment No Information Progress Notes * Tracie NORIEGA DDOB:[birth year] (39 yo F)Acc No.[id number]:04/01/2024 Progress Notes Patient:?Tracie NORIEGA Provider:?Kymberly Sarabia DPM :1985???Age:38 Y???Sex:Female D ate:04/01/2024 Address:[address] [place] Pcp:Pardeep Garrett Subjective: * Chief Complaints: * [...] Sarabia DPM Date:?04/2024 Generated for Meredith theodore/Jacque/Malathi on:?07/15/2024 02:34 PM EST
== END 2024-07-15 12:14 | disposition home or self-care (01) ==
LOC: HO.HWS 11:55
PROVIDERS: PCP Internal Medicine; Visit Provider Obstetrics & Gynecology
DX: D25.9 Leiomyoma of uterus, unspecified (principal); N76.0 Acute vaginitis; B96.89 Other specified bacterial agents as the cause of diseases classified elsewhere
CPT/HCPCS: 99213

== ENCOUNTER 2024-08-26 11:16 | Outpatient (REF) | payer OTHER, SELFPAY ==
[2024-08-26 16:10] LABS: MANUAL DIFF FLAG NO
[2024-08-26 16:14] LABS: Basophils Absolute Auto 0.1 X10*3/uL (0.0-0.2); Basophils Percent Auto 0.7 % (0-2); Eosinophils Absolute Auto 0.1 X10*3/uL (0.0-0.4); Eosinophils Percent Auto 0.9 % (0-4); Hematocrit 40.7 % (37.0-47.0); Hemoglobin 14.1 g/dl (12.0-16.0); Imm Gran Abs Auto 0.04 X10*3/uL (0.00-0.03); Imm Gran Pct Auto 0.4 % (0.0-0.4); Lymphocytes Absolute Auto 2.3 X10*3/uL (1.2-4.9); Lymphocytes Percent Auto 21.4 % (20-40); Mean Corpuscular HGB Conc 34.6 g/dl (31.0-35.0); Mean Corpuscular Hemoglobin 30.1 pg (27.0-33.0); Mean Corpuscular Volume 86.8 fL (80.0-98.0); Mean Platelet Volume 11.7 fL (9.4-12.3); Monocytes Absolute Auto 0.7 X10*3/uL (0.1-1.2); Neutrophils Absolute Auto 7.7 x10*3/uL (2.0-8.3); Neutrophils Percent Auto 70.6 % (45-73); Platelet Count 322 X10*3/uL (160-400); Red Blood Count 4.69 X10*6/uL (4.20-5.50); Red Cell Distribution Width 12.3 % (11.0-16.0); White Blood Count 10.8 X10*3/uL (4.8-10.8)
[2024-08-26 16:21] LABS: D Dimer High Sensitivity < 150 NG/ML
[2024-08-26 16:37] LABS: B Type Natriuretic Peptide 13 pg/mL (<100)
[2024-08-26 16:58] LABS: Alanine Aminotransferase 24 U/L (0-31); Albumin Level 4.4 g/dL (3.5-5.0); Alkaline Phosphatase 95 U/L (39-117); Anion Gap 11 (12-20); Aspartate Amino Transferase 22 U/L (5-31); Bilirubin Total 0.3 mg/dL (0.0-1.0); Blood Urea Nitrogen 9 mg/dL (9-16); Calcium 9.2 mg/dL (8.4-10.2); Carbon Dioxide 23 mmol/L (22-29); Chloride 108 mmol/L (96-108); Estimated Glomerular Filt Rate > 60; Glucose Random 88 mg/dL (60-115); Potassium 3.8 mmol/L (3.3-5.1); Sodium 138 mmol/L (135-145); Total Protein 7.8 g/dL (6.5-8.0)
[2024-08-26 17:14] LABS: TSH reflex Free T4 1.96 uIU/mL (0.32-4.0)
[2024-08-27 04:23] LABS: Syphilis Screen Nonreactive (Nonreactive)
[2024-08-27 05:17] LABS: HBsAGNum1 0.26 S/CO (0.00-0.99); HIV AB/AG Nonreactive (Nonreactive); HIV Num 1 0.08 S/CO (0.00-0.99); Hepatitis B Surface Antigen Negative (Negative); ~HepC Num1 0.14 S/CO (0.00-0.79); ~Hepatitis C Antibody Nonreactive (Nonreactive)
[2024-08-27 08:23] LABS: Follicle Stimulating Hormone 5.4 mIU/mL
== END 2024-08-26 11:17 | disposition home or self-care (01) ==
LOC: HO.HMGCLDS 11:16
PROVIDERS: Obstetrics & Gynecology; PCP Internal Medicine; Visit Provider Internal Medicine
DX: R06.09 Other forms of dyspnea (principal); R00.2 Palpitations; N91.2 Amenorrhea, unspecified; N76.0 Acute vaginitis; B96.89 Other specified bacterial agents as the cause of diseases classified elsewhere; R10.9 Unspecified abdominal pain; F41.9 Anxiety disorder, unspecified; F32.A Depression, unspecified
CPT/HCPCS: 36415; 80053; 83001; 83880; 84443; 85025; 85379; 86780; 86803; 87340; 87389; 96127; 99212

== ENCOUNTER 2024-08-26 11:16 | Outpatient (AMB) | payer OTHER, SELFPAY ==
[2024-08-26 11:33] VITALS: BP 108/70; PULSE 91; RESP 20; TEMP 36.9; O2SAT 96; BMI 43.4
--- NOTE | 2024-08-26 11:33 | MHC.PC.OV ---
Vital Signs 08/26/24 11:33 Height 5 ft 5.5 in Weight 265 lb BMI 43.4 BP 108/70 Blood Pressure Location Rt brachial Position Sitting Respiration 20 Pulse 91 Pulse Source Pulse Oximeter Temp 98.4 F Temp Source Oral Pulse Oximetry (%) 96 Oxygen Delivery Method Room Air Intake Visit Reasons: Shortness of breath follow-up Intake Note: Pt is here today for a follow up visit on SOB. Allergies latex Allergy (Mild, Verified 08/26/24 11:33) Swelling Medication List - Last Reconciled 08/26/24 by Wendy Son MD [id number] 250-250-65 mg (Excedrin Migraine) 2 tabs PO Q6H PRN Tobacco use date assessed: 08/26/24 Dental Screening Dental Screen Date: 08/26/24 Did you have a dental visit in the last 12 months?: Yes Did you have a dental problem in the last 6 months where you did not have access to dental care?: No Was dental information given to patient?: Patient has dentist HPI Shortness of breath follow-up HPI Details Pt c/o chronic for many years by getting worse for the last 2 months SAENZ and palpitations worse when walking up the stairs and after drinking coffee. Patient reports chest tightness when walking up the stairs denies cough pleurisy PND orthopnea fever chills. Patient reports decreased appetite occasionally nausea and epigastric discomfort after eating. Patient denies vomiting, change in bowel habits, hematochezia or melena. Patient has been under lot of stress. her is in and patient will be relocated within the next 2 months. She denies suicide ideation. [facility] Medical History Abscess Irregular menses Migraine Ovarian cyst Surgical History History of mandibular surgery History of endometrial ablation Family History Mother Mental health disorder Maternal Uncle Mental health disorder CAD (coronary artery disease), Onset Age: 44 Maternal Grandmother Mental health disorder CAD (coronary artery disease), Onset Age: 60 Social History Household Members Other:: marreid, 3 children (17-9), in , Housing: Other Housing Other:: [facility] Patient Tobacco Use Status: Former Tobacco user e-Cigarette/Vaping Use: Never Used service: No Current occupational status: employed Cognitive needs: No Hearing needs: No Vision needs: Yes Female Reproductive History Menstrual Age of Menarche: 12 Questionnaire PHQ-9 Over the last 2 weeks, how often have you been bothered by any of the following problems? 1. Little interest or pleasure in doing things: nearly every day 2. Feeling down, depressed, or hopeless: nearly every day 3. Trouble falling or staying asleep, or sleeping too much: nearly every day 4. Feeling tired or having little energy: nearly every day 5. Poor appetite or overeating: nearly every day 6. Feeling bad about yourself - or that you are a failure or have let yourself or your family down: nearly every day 7. Trouble concentrating on things, such as reading the newspaper or watching television: nearly every day 8. Moving or speaking so slowly that other people could have noticed. Or the opposite - being so fidgety or restless that you have been moving around a lot more than usual: several days 9. Thoughts that you would be better off or of hurting yourself in some way: not at all Total score: 22 Depression Screening Interpretation: Positive (Patient was advised to get established with a counselor but she is not interested, Zoloft 50 mg will be prescribed patient follow-up in 1 month) Depression Screening Follow-up: New Medication prescribed Depression Screening Done: Yes 50585 - PHQ-9 Billing: Yes Source: Developed by Drs. Kody Taylor, Yoly Watts, Beka Guzmán and colleagues, with an educational martha from [employer]. Thrive Questionnaire Date Thrive assessed: 08/26/24 I am a: Patient What is your living situation today?: I have a steady place to live Within the past 12 months, did the food you bought not last and you didn't have the money to get more?: Never true Within the past 12 months, did you worry whether your food would run out before you got money to buy more?: Never true Do you have trouble paying for medicines?: No Do you have trouble getting transportation to medical appointments?: No Do you have trouble paying your heating and electricity bill?: No Do you have trouble taking care of your child, family member or friend?: No Do you have trouble with day-to-day activities such as bathing, preparing meals, shopping, managing finances, etc.?: No Are you currently unemployed and looking for a job?: Yes Are you interested in more education?: No THRIVE Score: 0 AUDIT C Alcohol Use Questionnaire (AUDIT-C) 1. How often do you have a drink containing alcohol?: Monthly or less 2. How many drinks containing alcohol do you have on a typical day when you are drinking?: 1 or 2 3. How often do you have six or more drinks on one occasion?: Never Total Score: 1 PALMIRA-7 AMB Questionnaire PALMIRA-7 Date PALMIRA - 7 assessed: 08/26/24 Feeling nervous, anxious, or on edge: 3 = Nearly every day Not being able to stop or control worryin = Nearly every day Worrying too much about different things: 3 = Nearly every day Trouble relaxin = Nearly every day Being so restless that it is hard to sit still: 2 = More than half the days Becoming easily annoyed or irritable: 3 = Nearly every day Feeling afraid as if something awful might happen: 3 = Nearly every day Total PALMIRA-7 score (0-4 normal; 5-9 mild; 10-14 moderate; 15-21 severe): 20 Source: Developed by Drs. Kody Taylor, Yoly Watts, Beka Guzmán and colleagues, with an educational martha from [employer]. PALMIRA-7 Assessment Billing PALMIRA-7 Assessment Tool: PALMIRA-7 Assessment 56614 Review of Systems Const All systems reviewed & are unremarkable except as noted in HPI and below Eyes Reports no additional complaints ENT Reports no additional complaints Card Reports no additional complaints Resp Reports no additional complaints GI Reports no additional complaints Physical exam (Primary Care) Vital Signs: Last Vital Signs Temp 98.4 F 08/26/24 11:33 Pulse 91 08/26/24 11:33 Resp 20 08/26/24 11:33 BP 108/70 08/26/24 11:33 Pulse Ox 96 08/26/24 11:33 Oxygen Delivery Method Room Air 08/26/24 11:33 BMI result Body Mass Index 43.4 Tobacco/Smoking Status: Tobacco use Status Tobacco use date assessed 08/26/24 08/26/24 11:35 Patient Tobacco Use Status Former Tobacco user 08/26/24 11:35 e-Cigarette/Vaping Use Never Used 08/26/24 11:35 Depression Screening Interpretation: Positive (Patient was advised to get established with a counselor but she is not interested, Zoloft 50 mg will be prescribed patient follow-up in 1 month) Depression Screening Follow-up: New Medication prescribed Thrive Assessment: Date of Thrive Assessment Date Thrive assessed 10/19/23 08/26/24 11:35 Const General: no acute distress HENMT Head: Yes normal to inspection Mouth: Normal oral and palatal mucosa present Resp Effort & Inspection: normal respiratory effort Auscultation: clear to auscultation bilaterally Cardio Rhythm: regular rhythm Heart sounds: S1 normal heart sound present and S2 normal heart sound present GI Inspection: Yes normal to inspection Palpation (GI): Soft to palpation Percussion: Yes normal to percussion Auscultation: normal bowel sounds Coding Level of Care Code Est Pt Level 4 (95541) Diagnoses SAENZ (dyspnea on exertion) R06.09 Amenorrhea N91.2 Palpitations R00.2 Abdominal pain R10.9 Anxiety and depression F41.9; F32.A Additional Codes PALMIRA-7 Assessment Billing - PALMIRA-7 Assessment Tool: PALMIRA-7 Assessment 29735 ([id number]) PHQ-9 - 50107 - PHQ-9 Billing: Yes ([id number]) Assessment & Plan Assessment & Plan (1) SAENZ (dyspnea on exertion): Code(s): R06.09 - Other forms of dyspnea Category: Medical Plan: Check chest x-ray echocardiogram blood work including CBC iron count TSH (2) Amenorrhea: Code(s): N91.2 - Amenorrhea, unspecified Category: Medical Plan: Check FSH level for perimenopausal (3) Palpitations: Code(s): R00.2 - Palpitations Category: Medical Plan: EKG showed normal sinus rhythm no ST-T changes. Three day Holter and echocardiogram will be scheduled (4) Abdominal pain: Code(s): R10.9 - Unspecified abdominal pain Category: Medical Plan: Check comprehensive panel obtain abdominal ultrasound to rule out gallstones (5) Anxiety and depression: Code(s): F41.9 - Anxiety disorder, unspecified; F32.A - Depression, unspecified Category: Medical Plan: Stress management discussed with the patient. She declined counseling. Zoloft 25 mg for the first 3 days then increase to 50 mg will be started. patient will follow-up in 1 month Orders: Orders Complete Blood Count Auto Diff Today R00.2 - Palpitations, R06.09 - Other forms of dyspnea Comprehensive Met. Panel Today R00.2 - Palpitations, R06.09 - Other forms of dyspnea TSH reflex Free T4 Today R00.2 - Palpitations, R06.09 - Other forms of dyspnea ECG 3 day holter monitor Today R00.2 - Palpitations, R06.09 - Other forms of dyspnea D Dimer High Sensitivity Today R00.2 - Palpitations, R06.09 - Other forms of dyspnea B Type Natriuretic Peptide Today R00.2 - Palpitations, R06.09 - Other forms of dyspnea CA echo transthoracic complete Today R00.2 - Palpitations, R06.09 - Other forms of dyspnea US abdomen limited Today R10.9 - Unspecified abdominal pain XR chest 1V Today R06.09 - Other forms of dyspnea Follicle Stimulating Hormone Today N91.2 - Amenorrhea, unspecified Medications: New sertraline 1/2 tabl qd x 3 days then 1 tabl qd 50 mg PO DAILY 90 tabs 0RF
--- OUTSIDE RECORDS SUMMARY | 2024-08-26 13:45 | XMS_ITS | Patient Health Record ---
[facility] Address [address] [place] [address] Care Team Providers Care Logistics Tech Name Role Phone Shin LINARES, Adenike Busch Primary Care Provider Un available Kymberly Sarabia Unavailable [phone] Allergies Allergen (clinical drug ingredient) Drug/Non Drug Allergy documented on EMR Reaction Allergy Type Onset Date Status Latex Latex rash/swelling Allergy Active Reason For Referral Diagnosis 1 Pain in unspecified foot (M79.673) Referring Provider First Name Adenike Washington Referring Provider Last Name Shin Referring Provider Speciality Internal M edicine [facility] Referred Provider Kymberly Sarabia Referred Address [address] ,[place], [place],[address], Referred Provider Specialty Podiatry Referral Priority Routine [...] 02/01/2024 Encounters Encounter Location Date Provider Diagnosis [address] [address] 02/01/2024 Kymberly Sarabia Pain in right foot M79.671 ; Plantar fasciitis, bilateral M72.2 ; Calcaneal spur, right foot M77.31 ; Other myositis of right foot M60.871 ; Bursitis of right foot M77.51 ; Pain in left foot M79.672 ; Calcaneal spur, left foot M77.32 ; Other myositis of left foot M60.872 and Bursitis of left foot M77.[address] [address] 02/01/2024 Kymberly Sarabia Plantar fasciitis, bilateral M72.[address] [address] 02/01/2024 Kymberly Sarabia [address] [address] 04/01/2024 Kymberly Sarabia Assessments Encounter Date Diagnosis [...] Insured Coverage Start Date Coverage End Date [facility] [address] [place] [id number] Tracie Schultz Self - patient is the insured Medical (General) History Medical History History ICD Code covid-19 Headaches/Migraines Chicken pox Joint implants/screws Surgical History Surgery Date(Month/Year) jaw surgery 2002 I&D for Infection 2018 Abcess Infection 2x 2019
--- OUTSIDE RECORDS SUMMARY | 2024-08-26 13:46 | XMS_ITS ---
Author Organization [facility] Address [address] [place] [address] Care Team Providers Care Clay Modeler Name Role Phone Shin LINARES, Adenike Busch Primary Care Provider Un available Kymberly Sarabia Unavailable [phone] REASON FOR VISIT Purchased Pedag Ot Encounters Encounter Location Date Provider Diagnosis [facility] [address] [place] [address] 02/01/2024 Kymberly Sarabia Plan Of Treatment No Information Progress Notes * Tracie NORIEGA DDOB:[birth year] (38 yo F)Acc No.[id number]:02/01/2024 Patient:?Tracie Noriega :1985???Age:38 Y???Sex:Female Address:[place], [address] * true * Date:? Generated for Printi ewelina/Jacque/eTransmitting on:?08/26/2024 01:45 PM EDT
--- OUTSIDE RECORDS SUMMARY | 2024-08-26 13:46 | XMS_ITS ---
Author Organization [facility] Address [address] [place] [address] Care Team Providers Care Landing Signal Officer Name Role Phone Shin LINARES, Adenike Busch Primary Care Provider Un available Kymberly Sarabia Unavailable [phone] REASON FOR VISIT 04/01/24 NS Encounters Encounter Location Date Provider Diagnosis [facility] [address] [place] [address] 04/01/2024 Kymberly Sarabia Plan Of Treatment No Information Progress Notes * Tracie NORIEGA DDOB:[birth year] (38 yo F)Acc No.[id number]:04/01/2024 Patient:?Tracie NORIEGA :1985???Age:38 Y???Sex:Female Address:[place], [address] * true * Date:? Generated for Printi ng/Fashaunag/eTransmitting on:?08/26/2024 01:46 PM EDT
--- OUTSIDE RECORDS SUMMARY | 2024-08-26 13:46 | XMS_ITS ---
Author Organization [facility] Address [address] [place] [address] Care Team Providers Care Combiner Operator Name Role Phone Shin LINARES, Adenike Busch Primary Care Provider Un available Kymberly Sarabia Unavailable [phone] Medications Medication SIG (Take, Route, Fr equency, Duration) Notes Start Date End Date Status Physical Therapy . . . 2-3x/week for 3-4 weeks Active Excedrin Migraine Ac tive Advil Active Encounters Encounter Location Date Provider Diagnosis [facility] [address] [place] [address] 04/01/2024 Kymberly Sarabia Plan Of Treatment No Information Progress Notes * Tracie NORIEGA DDOB:[birth year] (39 yo F)Acc No.[id number]:04/01/2024 Progress Notes Patient:?Tracie NORIEGA Provider:?yKmberly Sarabia DPM :1985???Age:38 Y???Sex:Female D ate:04/01/2024 Address:[address] [place] Pcp:Pardeep Garrett Subjective: * Chief Complaints: * [...] Sarabia DPM Date:?04/2024 Generated for Meredith theodore/Jacque/Malathi on:?08/26/2024 01:45 PM EDT
== END 2024-08-26 13:01 | disposition home or self-care (01) ==
PROVIDERS: PCP Internal Medicine; Visit Provider Internal Medicine
DX: R06.09 Other forms of dyspnea (principal); N91.2 Amenorrhea, unspecified; R00.2 Palpitations; R10.9 Unspecified abdominal pain; F41.9 Anxiety disorder, unspecified; F32.A Depression, unspecified

== ENCOUNTER → 2024-09-19 09:53 | Outpatient (REF) | payer OTHER, SELFPAY ==
--- NOTE | 2024-09-19 09:57 | CA_ITS ---
Transthoracic Echocardiogram Patient (Last, First, Middle): Tracie Schultz, Gender: Female Date of : 1985 Age: 39 Procedure Date: 09/19/2024 Procedure Type: Transthoracic Echocardiogram Location: OP Height: 165.1 cm Weight: 120.2 kg BSA: 2.23 m2 Heart Rate: 82 bpm BP: 108 / 70 mmHg University Controller: SB Referring MD: Wendy Son MD Symptoms: R00.2 - Palpitations Study Quality: Fair ECG Rhythm: Sinus Conclusions: - Normal left ventricular size, thickness, systolic function, and wall motion. The visually estimated ejection fraction is between 60-65%. Diastolic function is normal for age. - Ascending aorta is at upper limit of normal. Findings Left Ventricle Normal left ventricular size, thickness, systolic function, and wall motion. The visually estimated ejection fraction is between 60-65%. Diastolic function is normal for age. Right Ventricle Normal right ventricular cavity size and systolic function. Atria Both atria are normal in size. Aortic Valve Normal aortic valve structure and function. There is no aortic valve stenosis. There is no aortic valve regurgitation. Mitral Valve The mitral valve appears normal. There is no mitral valve regurgitation. There is no mitral valve stenosis. Pulmonic Valve The pulmonic valve is likely normal. Tricuspid Valve Normal tricuspid valve structure. There is no tricuspid valve regurgitation. Tricuspid regurgitation envelope is inadequate for calculation of right ventricular systolic pressure. Normal right atrial pressure. Great Vessels Ascending aorta is at upper limit of normal. The visualized portions of the pulmonary artery and branches are normal. Venous The inferior vena cava is normal in size and collapses greater than 50% with inspiration. Pericardium/Pleural There is no evidence of pericardial effusion. Prior Study Comparison No prior study available for comparison. Measurements 2D Linear Measurements IVSd: 0.87 0.6-0.9/0.6-1.0 cm LVIDd: 4.67 3.9-5.3/4.2-5.9 cm LVIDd Index: 2.09 2.4-3.2/2.2-3.1 cm/m2 LVIDs: 3.01 2.0-3.6 cm LVPWd: 0.72 0.7-1.1 cm LA Diam: 3.80 2.7-3.8/3.0-4.0 cm LAIDs Index: 1.70 1.5-2.3 cm/m2 LV Mass: 149.08 67-162/88-224 g LV Mass Index: 66.85 43-95/49-115 g/m2 LVOT Diam: 1.80 3.0+(-)1.3 cm 2D Systolic Function EF 4C: 64.00 >55% EF 2C: 67.40 >55% EF BiP: 65.70 >55% Mitral Valve MV Pk E: 1.01 MV PK A: 0.48 MV Decel Time: 170.00 E/A: 2.10 E'Lateral: 11.10 E'Medial: 8.59 E/E' Med: 11.80 E/E' Lat: 9.10 PHT: 50.00 MVA PHT: 4.40 Decel [place]: 5.93 Aortic Valve AoV Pk Shon: 1.58 AoV Mn Shon: 1.14 AoV VTI: 0.33 AoV Pk Grad: 10.00 Aov Mn Grad: 6.00 ROMERO Cont.VTI: 2.02 LVOT LVOT Pk Shon: 1.28 LVOT Mn Shon: 0.92 LVOT VTI: 0.26 LVOT Pk Grad: 7.00 LVOT Mn Grad: 4.00 LVOT Diam: 1.80 LVOT Area: 2.54 Diastolic Function MV Pk E: 1.01 MV Pk A: 0.48 E/A: 2.10 E'Medial: 8.59 E/E' Med: 11.80 E' Laterial: 11.10 E/E' Lat: 9.10 Right Ventricle TAPSE (mm): 19.40 TVS' Shon: 10.00 Tricuspid Valve RA Press: 3.00 Great Vessels Aorta Sinus of Valsalva: 2.70 2.0-3.5 cm Ao Asc: 3.30 2.1-3.4 cm Ao Arch: 2.60 Ao Desc: 1.40 Pulmonary Veins Pulm Vein S/D 0.80 Pulmonary Valve PV Pk Shon: 0.82 Peak PV Grad: 3.00 Updated in Other Vendor System with Status of Final Higinio Vital MD electronically signed on 09/21/2024 9:39:15 PM with status of Final
--- OUTSIDE RECORDS SUMMARY | 2024-09-19 10:42 | XMS_ITS ---
Author Organization [facility] Address [address] [place] [address] Care Team Providers Care Communications Equipment Supervisor Name Role Phone Shin LINARES, Adenike Busch Primary Care Provider Un available Kymberly Sarabia Unavailable [phone] REASON FOR VISIT Purchased Pedag Ot Encounters Encounter Location Date Provider Diagnosis [facility] [address] [place] [address] 02/01/2024 Kymberly Sarabia Plan Of Treatment No Information Progress Notes * Tracie NORIEGA DDOB:[birth year] (38 yo F)Acc No.[id number]:02/01/2024 Patient:?Tracie Noriega :1985???Age:38 Y???Sex:Female Address:[place], [address] * true * Date:? Generated for Printi ewelina/Jacque/eTransmitting on:?09/19/2024 10:42 AM EDT
--- OUTSIDE RECORDS SUMMARY | 2024-09-19 10:42 | XMS_ITS | Patient Health Record ---
[facility] Address [address] [facility] [place] [address] Care Team Providers Care It Generalist Name Role Phone Shin LINARES, Adenike Busch Primary Care Provider Un available Kymberly Sarabia Unavailable [phone] Allergies Allergen (clinical drug ingredient) Drug/Non Drug Allergy documented on EMR Reaction Allergy Type Onset Date Status Latex Latex rash/swelling Allergy Active Reason For Referral Diagnosis 1 Pain in unspecified foot (M79.673) Referring Provider First Name Adenike Washington Referring Provider Last Name Shin Referring Provider Speciality Internal M edicine [facility] [place] Referred Provider Kymberly Sarabia Referred Address [address] ,[place],[address], Referred Provider Specialty Podiatry Referral Priority Routine [...] 02/01/2024 Encounters Encounter Location Date Provider Diagnosis [address] [address] 02/01/2024 Kymberly Sarabia Pain in right foot M79.671 ; Plantar fasciitis, bilateral M72.2 ; Calcaneal spur, right foot M77.31 ; Other myositis of right foot M60.871 ; Bursitis of right foot M77.51 ; Pain in left foot M79.672 ; Calcaneal spur, left foot M77.32 ; Other myositis of left foot M60.872 and Bursitis of left foot M77.[address] [address] 02/01/2024 Kymberly Sarabia Plantar fasciitis, bilateral M72.[address] [address] 02/01/2024 Kymberly Sarabia [address] [address] 04/01/2024 Kymberly Sarabia Assessments Encounter Date Diagnosis [...] Insured Coverage Start Date Coverage End Date [facility] [address] [place] [id number] Tracie Schultz Self - patient is the insured Medical (General) History Medical History History ICD Code covid-19 Headaches/Migraines Chicken pox Joint implants/screws Surgical History Surgery Date(Month/Year) jaw surgery 2002 I&D for Infection 2018 Abcess Infection 2x 2019
--- OUTSIDE RECORDS SUMMARY | 2024-09-19 10:42 | XMS_ITS ---
Author Organization [facility] Address [address] [place] [address] Care Team Providers Care Bag Machine Tender Name Role Phone Shin LINARES, Adenike Busch Primary Care Provider Un available Kymberly Sarabia [phone] Medications Medication SIG (Take, Route, Fr equency, Duration) Notes Start Date End Date Status Physical Therapy . . . 2-3x/week for 3-4 weeks Active Excedrin Migraine Ac tive Advil Active Encounters Encounter Location Date Provider Diagnosis [facility] [address] [place] [address] 04/01/2024 Kymberly Sarabia Plan Of Treatment No Information Progress Notes * Tracie NORIEGA DDOB:[birth year] (39 yo F)Acc No.[id number]:04/01/2024 Progress Notes Patient:?Tracie NORIEGA Provider:?Kymberly Sarabia DPM :1985???Age:38 Y???Sex:Female D ate:04/01/2024 Address:[address] [place] Pcp:Pardeep Garrett Subjective: * Chief Complaints: * [...] Sarabia DPM Date:?04/2024 Generated for Meredith theodore/Jacque/Malathi on:?09/19/2024 10:42 AM EDT
--- OUTSIDE RECORDS SUMMARY | 2024-09-19 10:43 | XMS_ITS ---
Author Organization [facility] Address [address] [place] [address] Care Team Providers Care Sewer Hand Name Role Phone Shin LINARES, Adenike Busch Primary Care Provider Un available Kymberly Sarabia Unavailable [phone] REASON FOR VISIT 04/01/24 NS Encounters Encounter Location Date Provider Diagnosis [facility] [address] [place] [address] 04/01/2024 Kymberly Sarabia Plan Of Treatment No Information Progress Notes * Tracie NORIEGA DDOB:[birth year] (38 yo F)Acc No.[id number]:04/01/2024 Patient:?Tracie NORIEGA :1985???Age:38 Y???Sex:Female Address:[place], [address] * true * Date:? Generated for Printi ng/Rebeccag/eTransmitting on:?09/19/2024 10:42 AM EDT
== END ==
LOC: HO.CARD 09:53
PROVIDERS: PCP Internal Medicine; Visit Provider Internal Medicine
DX: R00.2 Palpitations (principal); R06.09 Other forms of dyspnea
CPT/HCPCS: 93242; 93306

== ENCOUNTER → 2024-09-19 09:57 | Outpatient (BNV) | payer OTHER, SELFPAY | PROVIDERS: PCP Internal Medicine; Visit Provider Internal Medicine Cardiovascular Disease | DX: R06.02 Shortness of breath (principal) | CPT/HCPCS: 93306 ==

== ENCOUNTER 2024-09-22 10:19 | Outpatient (REF) | payer OTHER, SELFPAY ==
--- NOTE | ~2024-09-22 | US_ITS ---
CLINICAL HISTORY: R10.9 - Unspecified abdominal pain --- Additional Notes or Special Instructions: Ru le out gallstones US abdomen complete with color Doppler Comparison: None Findings: The visualized pancreas, aorta, and inferior vena cava are unremarkable. Liver normal size and echotexture. Right lobe 16.0 cm length. No focal hepatic masses. Common duct 3.0 mm diameter. Physiologic distention of the gallbladder. No gallstones or sludge. No gallbladder wall thickening. No pericholecystic fluid. No sonographic Breaux sign. Main portal vein antegrade. Right kidney normal size, 10.7 cm in length. Normal cortical width and echotexture. No solid or cystic renal masses. No nephrolithiasis. No hydronephrosis. Left kidney normal, 10.2 cm in length. Normal cortical width and echotexture. No solid or cystic renal masses. No nephrolithiasis. No hydronephrosis. Spleen measures 10.3 cm. No splenic masses. No ascites. No lymphadenopathy. Impression: 1. Normal abdominal ultrasound. This document has been electronically signed by: Jared Pedersen MD on 09/22/2024 11:39:04
--- OUTSIDE RECORDS SUMMARY | 2024-09-22 11:37 | XMS_ITS ---
Author Organization [facility] Address [address] [place] [address] Care Team Providers Care Store Person Name Role Phone Shin LINARES, Adenike Busch Primary Care Provider Un available Kymberly Sarabia Unavailable [phone] REASON FOR VISIT Purchased Pedag Ot Encounters Encounter Location Date Provider Diagnosis [facility] [address] [place] [address] 02/01/2024 Kymberly Sarabia Plan Of Treatment No Information Progress Notes * Tracie NORIEGA DDOB:[birth year] (38 yo F)Acc No.[id number]:02/01/2024 Patient:?Tracie Noriega :1985???Age:38 Y???Sex:Female Address:[place], [address] * true * Date:? Generated for Printi ng/Rebeccag/eTransmitting on:?09/22/2024 11:37 AM EDT
--- OUTSIDE RECORDS SUMMARY | 2024-09-22 11:38 | XMS_ITS ---
Author Organization [facility] Address [address] [place] [address] Care Team Providers Care Custom Wood Stair Builder Name Role Phone Shin LINARES, Adenike Busch Primary Care Provider Un available Kymberly Sarabia Unavailable [phone] REASON FOR VISIT 04/01/24 NS Encounters Encounter Location Date Provider Diagnosis [facility] [address] [place] [address] 04/01/2024 Kymberly Sarabia Plan Of Treatment No Information Progress Notes * Tracie NORIEGA DDOB:[birth year] (38 yo F)Acc No.[id number]:04/01/2024 Patient:?Tracie NORIEGA :1985???Age:38 Y???Sex:Female Address:[place], [address] * true * Date:? Generated for Printi ng/Fashaunag/eTransmitting on:?09/22/2024 11:38 AM EDT
== END 2024-09-22 10:20 | disposition home or self-care (01) ==
LOC: HO.HMGCX 10:19
PROVIDERS: PCP Internal Medicine; Visit Provider Internal Medicine
DX: R10.9 Unspecified abdominal pain (principal)
CPT/HCPCS: 76700

== ENCOUNTER → 2024-09-22 10:21 | Outpatient (BNV) | payer OTHER, SELFPAY | PROVIDERS: PCP Internal Medicine; Visit Provider Radiology Diagnostic Radiology | DX: R10.9 Unspecified abdominal pain (principal) | CPT/HCPCS: 76700 ==

== ENCOUNTER 2024-09-24 09:40 | Outpatient (AMB) | payer OTHER, SELFPAY ==
[2024-09-24 09:43] VITALS: BP 110/78; PULSE 92; RESP 20; TEMP 37.3; O2SAT 96; BMI 43.4
--- NOTE | 2024-09-24 09:43 | A.OFFPC_ITS ---
Vital Signs 09/24/24 09:43 Height 5 ft 5.5 in Weight 265 lb BMI 43.4 BP 110/78 Blood Pressure Location Lt brachial Position Sitting Respiration 20 Pulse 92 Pulse Source Pulse Oximeter Temp 99.2 F Temp Source Oral Pulse Oximetry (%) 96 Oxygen Delivery Method Room Air Intake Visit Reasons: 1m follow up Intake Note: Pt is here today for 1 month follow up visit. Allergies latex Allergy (Mild, Verified 09/24/24 09:43) Swelling Medication List - Last Reconciled 09/24/24 by Wendy Son MD douahbc-gkxmzoqcnayzk-gbjnszil 250-250-65 mg (Excedrin Migraine) 2 tabs PO Q6H PRN Tobacco use date assessed: 09/24/24 Dental Screening Dental Screen Date: 08/26/24 HPI 1m follow up HPI Details patient presents for the follow-up. She reports feeling better anxiety improved since patient found out that she is relocated to [place] where her family lives. she denies any recurrent episodes of palpitations or shortness for breath. [facility] Medical History (Updated 09/24/24 @ 16:01 by Wendy Son MD) SAENZ (dyspnea on exertion) Palpitations Hyperlipidemia Anxiety and depression Abscess Irregular menses Migraine Ovarian cyst Surgical History History of mandibular surgery History of endometrial ablation Family History Mother Mental health disorder Maternal Uncle Mental health disorder CAD (coronary artery disease), Onset Age: 44 Maternal Grandmother Mental health disorder CAD (coronary artery disease), Onset Age: 60 Social History (Updated 09/24/24 @ 16:02 by Wendy Son MD) Household Members Other:: , 3 children (17-9), in , Housing: Other Housing Other:: [facility] Patient Tobacco Use Status: Former Tobacco user e-Cigarette/Vaping Use: Never Used service: No Current occupational status: employed Cognitive needs: No Hearing needs: No Vision needs: Yes Female Reproductive History Menstrual Age of Menarche: 12 Questionnaire Thrive Questionnaire Date Thrive assessed: 09/24/24 I am a: Patient What is your living situation today?: I have a steady place to live Within the past 12 months, did the food you bought not last and you didn't have the money to get more?: Never true Within the past 12 months, did you worry whether your food would run out before you got money to buy more?: Never true Do you have trouble paying for medicines?: No Do you have trouble getting transportation to medical appointments?: No Do you have trouble paying your heating and electricity bill?: No Do you have trouble taking care of your child, family member or friend?: No Do you have trouble with day-to-day activities such as bathing, preparing meals, shopping, managing finances, etc.?: No Are you currently unemployed and looking for a job?: No Are you interested in more education?: No Please select the resources that you would like help with: None Currently or been in a relationship where the following occur: No concerns reported THRIVE Score: 0 AUDIT C Alcohol Use Questionnaire (AUDIT-C) 1. How often do you have a drink containing alcohol?: Monthly or less 2. How many drinks containing alcohol do you have on a typical day when you are drinking?: 1 or 2 3. How often do you have six or more drinks on one occasion?: Never Total Score: 1 PALMIRA-7 AMB Questionnaire PALMIRA-7 Date PALMIRA - 7 assessed: 08/26/24 Feeling nervous, anxious, or on edge: 1 = Several days Not being able to stop or control worryin = Several days Worrying too much about different things: 1 = Several days Trouble relaxin = Several days Being so restless that it is hard to sit still: 1 = Several days Becoming easily annoyed or irritable: 0 = Not at all Feeling afraid as if something awful might happen: 1 = Several days Total PALMIRA-7 score (0-4 normal; 5-9 mild; 10-14 moderate; 15-21 severe): 6 Source: Developed by Drs. Kody Taylor, Yoly Watts, Beka Guzmán and colleagues, with an educational martha from [employer]. Review of Systems Const All systems reviewed & are unremarkable except as noted in HPI and below ENT Reports no additional complaints Card Reports no additional complaints Resp Reports no additional complaints GI Reports no additional complaints Physical exam (Primary Care) Vital Signs: Last Vital Signs Temp 99.2 F 09/24/24 09:43 Pulse 92 09/24/24 09:43 Resp 20 05/07/25 09:43 BP 110/78 09/24/24 09:43 Pulse Ox 96 09/24/24 09:43 Oxygen Delivery Method Room Air 09/24/24 09:43 BMI result Body Mass Index 43.4 Tobacco/Smoking Status: Tobacco use Status Tobacco use date assessed 09/24/24 09/24/24 09:44 Patient Tobacco Use Status Former Tobacco user 09/24/24 09:44 e-Cigarette/Vaping Use Never Used 09/24/24 09:44 Thrive Assessment: Date of Thrive Assessment Date Thrive assessed 09/24/24 09/24/24 09:44 Currently or been in a relationship where the following occur: No concerns reported Const General: no acute distress HENMT Head: Yes normal to inspection Face and sinus: Yes normal facial exam Eyes General: appearance normal, both eyes and all related structures Neck Neck: Yes supple Resp Effort & Inspection: normal respiratory effort Auscultation: clear to auscultation bilaterally Cardio Rhythm: regular rhythm Heart sounds: S1 normal heart sound present and S2 normal heart sound present Coding Level of Care Code Est Pt Level 3 (55856) Diagnoses Anxiety and depression F41.9; F32.A Palpitations R00.2 Assessment & Plan Assessment & Plan (1) Anxiety and depression: Comment: She was advised to see a counselor, she did not want to take medication Code(s): F41.9 - Anxiety disorder, unspecified; F32.A - Depression, unspecified Category: Medical Plan: stress management mindfulness regular physical activity discussed with the patient (2) Palpitations: Comment: stress related, normal EKG and echo 08/2024 Code(s): R00.2 - Palpitations Category: Medical Plan: increase physical activity and stress management discussed Orders: Orders Lipid Panel Today E78.5 - Hyperlipidemia, unspecified Medications: Discontinued sertraline 1/2 tabl qd x 3 days then 1 tabl qd Discontinued Reason: Doctor's Order 50 mg PO DAILY 90 tabs 0RF
--- OUTSIDE RECORDS SUMMARY | 2024-09-24 10:33 | XMS_ITS ---
Author Organization [facility] Address [address] [place] [address] Care Team Providers Care Printing Bindery Assistant Name Role Phone Shin LINARES, Adenike Busch Primary Care Provider Un available Kymberly Sarabia [phone] Medications Medication SIG (Take, Route, Fr equency, Duration) Notes Start Date End Date Status Physical Therapy . . . 2-3x/week for 3-4 weeks Active Excedrin Migraine Ac tive Advil Active Encounters Encounter Location Date Provider Diagnosis [facility] [address] [place] [address] 04/01/2024 Kymberly Sarabia Plan Of Treatment No Information Progress Notes * Tracie NORIEGA DDOB:[birth year] (39 yo F)Acc No.[id number]:04/01/2024 Progress Notes Patient:?Tracie NORIEGA Provider:?Kymberly Sarabia DPM :1985???Age:38 Y???Sex:Female D ate:04/01/2024 Address:[address] Pcp:Pardeep Garrett Subjective: * Chief Complaints: * [...] Sarabia DPM Date:?04/2024 Generated for Meredith theodore/Jacque/Malathi on:?09/24/2024 10:33 AM EDT
--- OUTSIDE RECORDS SUMMARY | 2024-09-24 10:33 | XMS_ITS | Patient Health Record ---
Author [facility] Address [address] [facility] [place] [address] Care Team Providers Care Recreational Leader Name Role Phone Shin LINARES, Adenike Busch Primary Care Provider Un available Kymberly Sarabia Unavailable [phone] Allergies Allergen (clinical drug ingredient) Drug/Non Drug Allergy documented on EMR Reaction Allergy Type Onset Date Status Latex Latex rash/swelling Allergy Active Reason For Referral Diagnosis 1 Pain in unspecified foot (M79.673) Referring Provider First Name Adenike Washington Referring Provider Last Name Shin Referring Provider Speciality Internal M edicine [facility] [place] Referred Provider Kymberly Sarabia Referred Address [address] ,[place], [place],[address], Referred Provider Specialty Podiatry Referral Priority Routine [...] 02/01/2024 Encounters Encounter Location Date Provider Diagnosis [address] [address] 02/01/2024 Kymberly Sarabia Pain in right foot M79.671 ; Plantar fasciitis, bilateral M72.2 ; Calcaneal spur, right foot M77.31 ; Other myositis of right foot M60.871 ; Bursitis of right foot M77.51 ; Pain in left foot M79.672 ; Calcaneal spur, left foot M77.32 ; Other myositis of left foot M60.872 and Bursitis of left foot M77.[address] [address] 02/01/2024 Kymberly Sarabia Plantar fasciitis, bilateral M72.[address] [address] 02/01/2024 Kymberly Sarabia [address] [address] 04/01/2024 Kymberly Sarabia Assessments Encounter Date Diagnosis [...] Insured Coverage Start Date Coverage End Date [facility] [address] [place] [id number] Tracie Schultz Self - patient is the insured Medical (General) History Medical History History ICD Code covid-19 Headaches/Migraines Chicken pox Joint implants/screws Surgical History Surgery Date(Month/Year) jaw surgery 2002 I&D for Infection 2018 Abcess Infection 2x 2019
--- OUTSIDE RECORDS SUMMARY | 2024-09-24 10:33 | XMS_ITS ---
Author Organization [facility] Address [address] [place] [address] Care Team Providers Care Plastering Supervisor Name Role Phone Shin LINARES, Adenike Busch Primary Care Provider Un available Kymberly Sarbaia Unavailable [phone] REASON FOR VISIT Purchased Pedag Ot Encounters Encounter Location Date Provider Diagnosis [facility] [address] [place] [address] 02/01/2024 Kymberly Sarabia Plan Of Treatment No Information Progress Notes * Tracie NORIEGA DDOB:[birth year] (38 yo F)Acc No.[id number]:02/01/2024 Patient:?Tracie Noriega :1985???Age:38 Y???Sex:Female Address:[place], [address] * true * Date:? Generated for Printi ewelina/Jacque/eTransmitting on:?09/24/2024 10:33 AM EDT
--- OUTSIDE RECORDS SUMMARY | 2024-09-24 10:33 | XMS_ITS ---
Author Organization [facility] Address [address] [place] [address] Care Team Providers Care Seed Specialist Name Role Phone Shin LINARES, Adenike Busch Primary Care Provider Un available Kymberly Sarabia Unavailable [phone] REASON FOR VISIT 04/01/24 NS Encounters Encounter Location Date Provider Diagnosis [facility] [address] [place] [address] 04/01/2024 Kymberly Sarabia Plan Of Treatment No Information Progress Notes * Tracie NORIEGA DDOB:[birth year] (38 yo F)Acc No.[id number]:04/01/2024 Patient:?rTacie NORIEGA :1985???Age:38 Y???Sex:Female Address:[place], [address] * true * Date:? Generated for Printi ng/Fashaunag/eTransmitting on:?09/24/2024 10:33 AM EDT
== END 2024-09-24 13:47 | disposition home or self-care (01) ==
LOC: HO.HMCC 09:41
PROVIDERS: PCP Internal Medicine; Visit Provider Internal Medicine
DX: F41.9 Anxiety disorder, unspecified (principal); F32.A Depression, unspecified; R00.2 Palpitations

== ENCOUNTER → 2024-09-24 09:40 | Outpatient (BNVA) | payer OTHER, SELFPAY | PROVIDERS: PCP Internal Medicine; Visit Provider Internal Medicine | DX: F41.9 Anxiety disorder, unspecified (principal); F32.A Depression, unspecified; R00.2 Palpitations | CPT/HCPCS: 99212 ==

== ENCOUNTER 2025-01-07 07:57 | Outpatient (AMB) | payer OTHER, SELFPAY ==
[2025-01-07 07:58] VITALS: BP 106/72; PULSE 86; TEMP 36.7; O2SAT 97; BMI 43.6
--- NOTE | 2025-01-07 07:58 | MHC.OFFWIV ---
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 Is last menstrual period known: Yes Last menstrual period: 12/31/24 Post menopausal: No Patient : No Allergies latex Allergy (Mild, Verified 01/07/25 08:06) Swelling Do you need a note to return to daycare/school/sports/work: No HPI HPI Comments History of Present Illness Details Patient is a 39yo F who presents with concern yeast infection Ongoing x 3 days + vaginal itching, discharge that is white and thick No urinary frequency, urgency or dysuria Denies abdominal or back pain Has had in past and fluconazole helps; states OTC medicine causes reaction and does not use anythign topical She does admit to one new partner; unsure about exposures No hx of diabetes and denies needing to check sugar PFSH Medical History (Updated 01/07/25 @ 08:15 by Naz Chase PA-C) SAENZ (dyspnea on exertion) Palpitations Hyperlipidemia Anxiety and depression Abscess Irregular menses Migraine Ovarian cyst Surgical History History of mandibular surgery History of endometrial ablation Family History Mother Mental health disorder Maternal Uncle Mental health disorder CAD (coronary artery disease), Onset Age: 44 Maternal Grandmother Mental health disorder CAD (coronary artery disease), Onset Age: 60 Social History (Updated 09/24/24 @ 16:02 by Wendy Son MD) Household Members Other:: , 3 children (17-9), in , Housing: Other Housing Other:: [email or web address] Patient Tobacco Use Status: Former Tobacco user e-Cigarette/Vaping Use: Never Used Patient : No service: No Current occupational status: employed Cognitive needs: No Hearing needs: No Vision needs: Yes Female Reproductive History Menstrual Age of Menarche: 12 Date of last menstrual period: 12/31/24 Review of Systems Const Denies chills and Denies fever(s) Resp Denies cough GI Denies abdominal pain Denies dysuria, Denies pelvic pain, Denies urinary incontinence, Denies urinary hesitancy, Denies urinary urgency, Reports vaginal discharge and Reports vaginal pruritus Musc Denies back pain and Denies myalgias Skin/Breast Denies rash Physical Exam Exam Exam: General: Non-toxic, NAD. Speaking full sentences. Skin: Warm dry throughout Eye: EOMI Respiratory: CTA bilaterally. No wheezes, rales or rhonchi Cardiac: RRR. No murmur Abdominal: BS present. No ttp all 4 quads. No CVAT. : Pt deferred. MSK: Full ROM extremities. Neurology: Alert. No aphasia or facial droop. Gait without abnormality Psych: Good mood and affect Vital Signs: Last Vital Signs Temp 98.1 F 01/07/25 07:58 Pulse 86 01/07/25 07:58 BP 106/72 01/07/25 07:58 Pulse Ox 97 01/07/25 07:58 Oxygen Delivery Method Room Air 01/07/25 07:58 BMI result Body Mass Index 43.6 Assessment & Plan Assessment & Plan (1) Vaginal discharge: Code(s): N89.8 - Other specified noninflammatory disorders of vagina Plan: Patient seen and evaluated. Vaginitis panel GC and mirella ordered and sent via self swab Will tx with fluconazole F/U with PCP Will call her with results when they return Patient gave verbal understanding and had no additional questions or concerns at time of discharge All questions answered Orders: Orders CT NG by PCR Vag/Cerv Today N89.8 - Other specified noninflammatory disorders of vagina Bacterial Vaginosis Panel Today N89.8 - Other specified noninflammatory disorders of vagina Medications: New fluconazole 150 mg PO Q3D 2 tabs 0RF 2 doses Coding Level of Care Code Est Pt Level 3 (59246) Diagnoses Vaginal discharge N89.8
--- OUTSIDE RECORDS SUMMARY | 2025-01-07 07:59 | XMS_ITS | Patient Health Record ---
[facility] Pratt[facility] Address [address] [place] [address] Care Team Providers Care Mainspring Winder And Oiler Name Role Phone Shin LINARES, Adenike Busch Primary Care Provider Un available Kymberly Sarabia Unavailable [phone] Allergies Allergen (clinical drug ingredient) Drug/Non Drug Allergy documented on EMR Reaction Allergy Type Onset Date Status Latex Latex rash/swelling Allergy Active Reason For Referral Diagnosis 1 Pain in unspecified foot (M79.673) Referring Provider First Name Adenike Washington Referring Provider Last Name Shin Referring Provider Speciality Internal M edicine [facility] Referred Provider Kymberly Sarabia Referred Address [address] ,[place], [place],[address], Referred Provider Specialty Podiatry Referral Priority Routine Medications Medication SIG (Take, Route, Fr equency, Duration) Notes Start Date End Date Status Physical Therapy . . . 2-3x/week; Durat ion: 3-4 weeks 02/01/2024 Active Excedrin Migraine Ac tive Advil Active [...] 02/01/2024 Encounters Encounter Location Date Provider Diagnosis [address] [address] 02/01/2024 Kymberly Sarabia Pain in right foot M79.671 ; Plantar fasciitis, bilateral M72.2 ; Calcaneal spur, right foot M77.31 ; Other myositis of right foot M60.871 ; Bursitis of right foot M77.51 ; Pain in left foot M79.672 ; Calcaneal spur, left foot M77.32 ; Other myositis of left foot M60.872 and Bursitis of left foot M77.[address] [address] 02/01/2024 Kymberly Sarabia Plantar fasciitis, bilateral M72.[address] [address] 02/01/2024 Kymberly Sarabia [address] [address] 04/01/2024 Kymberly Sarabia Assessments Encounter Date Diagnosis [...] Insured Coverage Start Date Coverage End Date [facility] [address] [place] [address] [id number] Tracie Schultz Self - patient is the insured Medical (General) History Medical History History ICD Code covid-19 Headaches/Migraines Chicken pox Joint implants/screws Surgical History Surgery Date(Month/Year) jaw surgery 2002 I&D for Infection 2018 Abcess Infection 2x 2019
== END 2025-01-07 08:44 | disposition home or self-care (01) ==
PROVIDERS: PCP Internal Medicine; Visit Provider Physician Assistant
DX: N89.8 Other specified noninflammatory disorders of vagina (principal)

== ENCOUNTER 2025-01-07 07:57 | Outpatient (REF) | payer OTHER, SELFPAY ==
[2025-01-07 12:19] LABS: Bacterial Vaginosis PCR NEGATIVE (Negative); Candida Group PCR DETECTED (Not Detect); Candida glab krusei PCR NOT DETECTED (Not Detect); Trichomonas vaginalis PCR NOT DETECTED (Not Detect)
[2025-01-07 12:51] LABS: CT PCR NOT DETECTED (Not Detect.); NG PCR NOT DETECTED (Not Detect.)
== END 2025-01-07 07:58 | disposition home or self-care (01) ==
LOC: HO.LAB 07:57
PROVIDERS: PCP Internal Medicine; Visit Provider Physician Assistant
DX: N89.8 Other specified noninflammatory disorders of vagina (principal); Z11.3 Encounter for screening for infections with a predominantly sexual mode of transmission; Z11.8 Encounter for screening for other infectious and parasitic diseases
CPT/HCPCS: 81515; 87491; 87591; 99212

== ENCOUNTER 2025-01-12 07:39 | Outpatient (REF) | payer OTHER, SELFPAY ==
[2025-01-12 10:26] LABS: Appearance Urine Cloudy; Glucose Urine UA Negative (Negative); PH 5.5 (5.0-9.0); Specific Gravity - Urine 1.020 (1.005-1.025); UMIC TRIGGER UACC YES
[2025-01-12 10:33] LABS: UACC Culture Trigger YES
== END 2025-01-12 07:40 | disposition home or self-care (01) ==
LOC: HO.LAB 07:39
PROVIDERS: PCP Internal Medicine; Visit Provider Nurse Practitioner Family
DX: N76.0 Acute vaginitis (principal); Z13.89 Encounter for screening for other disorder
CPT/HCPCS: 81001; 81003; 87086; 99212

== ENCOUNTER 2025-01-12 07:39 | Outpatient (AMB) | payer OTHER, SELFPAY ==
--- NOTE | 2025-01-12 07:41 | AM.OFFWIN_ITS ---
Intake Vital Signs 01/12/25 07:44 Height 5 ft 5.5 in Weight 266 lb BMI 43.6 BP 108/78 Blood Pressure Location Lt brachial Position Sitting Respiration 17 Pulse 80 Pulse Source Pulse Oximeter Temp 98.2 F Temp Source Oral Pulse Oximetry (%) 98 Oxygen Delivery Method Room Air Intake Visit Reasons: EP Yeast infection still? Patient Tobacco Use Status: Former Tobacco user Allergies latex Allergy (Mild, Verified 01/12/25 07:41) Swelling HPI HPI Comments History of Present Illness Details 39 y/o Female patient who presents to [facility] with c/o Vaginal discharge and itching for over a week. She was evaluated and treated here 01/07 for Vaginal Yeast infection - she was given 2 doses of Fluconazole. Today Pt reports no symptom relief. She is sexually active with - admits to frequent intercourse with since the children are away. Denies abdominal pain or urinary symptoms. She does have an Track Layer Head but she does not like him - currently looking for a new Track Layer Head. [facility] Medical History (Updated 01/12/25 @ 07:58 by Payton Ortega NP) Vaginitis and vulvovaginitis SAENZ (dyspnea on exertion) Palpitations Hyperlipidemia Anxiety and depression Abscess Irregular menses Migraine Ovarian cyst Surgical History History of mandibular surgery History of endometrial ablation Family History Mother Mental health disorder Maternal Uncle Mental health disorder CAD (coronary artery disease), Onset Age: 44 Maternal Grandmother Mental health disorder CAD (coronary artery disease), Onset Age: 60 Social History (Updated 09/24/24 @ 16:02 by Wendy Son MD) Household Members Other:: , 3 children (17-9), in , Housing: [facility] Patient Tobacco Use Status: Former Tobacco user e-Cigarette/Vaping Use: Never Used service: No Current occupational status: employed Cognitive needs: No Hearing needs: No Vision needs: Yes Female Reproductive History Menstrual Age of Menarche: 12 Review of Systems Const All systems reviewed & are unremarkable except as noted in HPI and below Physical Exam Vital Signs: Last Vital Signs Temp 98.2 F 01/12/25 07:44 Pulse 80 01/12/25 07:44 Resp 17 01/12/25 07:44 BP 108/78 01/12/25 07:44 Pulse Ox 98 01/12/25 07:44 Oxygen Delivery Method Room Air 01/12/25 07:44 BMI result Body Mass Index 43.6 Const General: no acute distress Nutritional Appearance: obese Orientation/consciousness: patient oriented x3 Resp Effort & Inspection: normal respiratory effort Cardio Heart sounds: S1 normal heart sound present and S2 normal heart sound present GI Palpation (GI): Soft to palpation, not firm, nontender, no guarding, not rigid and No hepatosplenomegaly present Auscultation: normal bowel sounds Rectal Exam - Female: deferred General: Yes deferred Neuro General: patient oriented x3 Results AMB Urinalysis, Automated UA Leukoctes 125 Brenda/uL Last Edit by Rosa M Story CMA on 01/12/25 07:54 UA Nitrite Negative Last Edit by Rosa M Story CMA on 01/12/25 07:54 UA Urobilinogen 0.2 mg/dL Last Edit by Rosa M Story CMA on 01/12/25 07:54 UA Protein 0 mg/dL Last Edit by Rosa M Story CMA on 01/12/25 07:54 UA pH 6.0 Last Edit by Rosa M Story CMA on 01/12/25 07:54 UA Blood 0 Dung/uL Last Edit by Rosa M Story CMA on 01/12/25 07:54 UA Specific [place] 1.020 Last Edit by Rosa M Story CMA on 01/12/25 07:54 UA Ketone Negative Last Edit by Rosa M Story CMA on 01/12/25 07:54 UA Bilirubin 0 mg/dL Last Edit by Rosa M Story CMA on 01/12/25 07:54 UA Glucose 0 mg/dL Last Edit by Rosa M Story CMA on 01/12/25 07:54 Results Reviewed Results Reviewed: Laboratory Last Values Urine pH (Auto) 6.0 01/12/25 07:44 Specific [place] (Auto) 1.020 01/12/25 07:44 Urine Protein (Auto) 0 mg/dL 01/12/25 07:44 Glucose (UA)(Auto) 0 mg/dL 01/12/25 07:44 Urine Ketones (Auto) Negative 01/12/25 07:44 Urine Blood (Auto) 0 Dung/uL 01/12/25 07:44 Urine Nitrite (Auto) Negative 01/12/25 07:44 Urine Bilirubin (Auto) 0 mg/dL 01/12/25 07:44 Urine Urobilinogen (Auto) 0.2 mg/dL 01/12/25 07:44 Leukocyte Esterase (Auto) 125 Brenda/uL 01/12/25 07:44 Assessment & Plan Assessment & Plan (1) Vaginitis and vulvovaginitis: Code(s): N76.0 - Acute vaginitis Plan: Ordered Fluconazole 150 mg Q3days (72 hours) for 3 doses. 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 Urinalysis Pos for BRENDA - sent Urine for C&S Advised to get A1C to r/o T2DM. Discussed Safe Sex, use only water soluble lubricants. Abstain from [place] until symptoms resolve. Orders: Orders AMB Urinalysis Automated Today Z13.9 - Encounter for screening, unspecified UA CC w/rflx Micro + Cult Today N76.0 - Acute vaginitis Medications: New fluconazole 150 mg PO Q3D 3 tabs 2RF 3 days N89.8 - Other specified noninflammatory disorders of vagina Coding Level of Care Code Est Pt Level 4 (57394) Diagnoses Vaginitis and vulvovaginitis N76.0 Time Spent (min) 20
--- OUTSIDE RECORDS SUMMARY | 2025-01-12 07:41 | XMS_ITS | Patient Health Record ---
Author Organization [facility] Tyler Prattley Address [address] [place] [address] Care Team Providers Care Upholsterer Inside Name Role Phone Shin LINARES, Adenike Busch Primary Care Provider Un available Kymberly Sarabia Unavailable [phone] Allergies Allergen (clinical drug ingredient) Drug/Non Drug Allergy documented on EMR Reaction Allergy Type Onset Date Status Latex Latex rash/swelling Allergy Active Reason For Referral Diagnosis 1 Pain in unspecified foot (M79.673) Referring Provider First Name Adenike Washington Referring Provider Last Name Shin Referring Provider Speciality Internal M edicine [facility] Referred Provider Kymberly Sarabia Referred Address [address] ,[place], [place],[address], Referred Provider Specialty Podiatry Referral Priority Routine [...] 02/01/2024 Encounters Encounter Location Date Provider Diagnosis [address] [address] 02/01/2024 Kymberly Sarabia Pain in right foot M79.671 ; Plantar fasciitis, bilateral M72.2 ; Calcaneal spur, right foot M77.31 ; Other myositis of right foot M60.871 ; Bursitis of right foot M77.51 ; Pain in left foot M79.672 ; Calcaneal spur, left foot M77.32 ; Other myositis of left foot M60.872 and Bursitis of left foot M77.[address] [address] 02/01/2024 Kymberly Sarabia Plantar fasciitis, bilateral M72.[address] [address] 02/01/2024 Kymberly Sarabia [address] [address] 04/01/2024 Kymberly Sarabia Assessments Encounter Date Diagnosis [...] Start Date Coverage End Date [facility] [address] [place] [address] [id number] Tracie Schultz Self - patient is the insured Medical (General) History Medical History History ICD Code covid-19 Headaches/Migraines Chicken pox Joint implants/screws Surgical History Surgery Date(Month/Year) jaw surgery 2002 I&D for Infection 2018 Abcess Infection 2x 2019
[2025-01-12 07:44] VITALS: BP 108/78; PULSE 80; RESP 17; TEMP 36.8; O2SAT 98; BMI 43.6
== END 2025-01-12 08:48 | disposition home or self-care (01) ==
PROVIDERS: PCP Internal Medicine; Visit Provider Nurse Practitioner Family
DX: N76.0 Acute vaginitis (principal); Z13.9 Encounter for screening, unspecified